=== PATIENT | male | born 1970 | race Caucasian/White ===

== ENCOUNTER 2017-05-10 07:49 | Emergency (ER) | payer BC, OTHER ==
[2017-05-10] MEDS ORDERED: diphenhydrAMINE 50 MG/ML 1 ML VIAL IVP STA (08:36)
[2017-05-10] MEDS ORDERED: SODIUM CHLORIDE 0.9% 1,000 ML IV STA (08:36)
[2017-05-10] MEDS ORDERED: METOCLOPRAMIDE 5 MG/ML 2 ML VIAL IVP STA (08:36)
--- NOTE | 2017-05-10 08:59 | ED ---
General Adult HPI - General Chief complaint: Headache Stated complaint: headache/congestion/left face droop Time Seen by Provider: 05/10/17 08:17 Source: patient, RN notes reviewed Mode of arrival: wheelchair Limitations: no limitations - History of Present Illness Initial comments: Patient for 47-year-old male who presents emergency room today with a chief complaint of left-sided headache over the last 3 weeks. He does but is been followed the family doctor's is currently on second round of antibiotics for sinus infection along with steroids. He states it has not been much improvement over the last day. He states he was feeling better over the weekend. He states his symptoms started once again. Patient does admit that he 's had some pressure rebleeding over the left side. He feels like there is some swelling around his left eye with his eyelid drooping. He states he has seen the family doctor about this. States he feels pressure to the left ear. He states the headache is a sharp type headache that comes and goes located on the side. He denies any other complaints or symptoms. He does not that he takes [place] along with ibuprofen for chronic back pain with Flexeril. He states he's been on amoxicillin now followed by cefuroxime and currently with prednisone for this sinus infection. Patient is he had some nausea vomiting this morning after trying take his or complications. He states he has been diagnosed with hypertension has not currently started any blood pressure medication. Patient denies any recent fever, chills, shortness of breath, chest pain, back pain, abdominal pain, numbness or tingling, dysuria or hematuria, constipation or diarrhea, visual changes, or any other complaints. - Related Data Home Medications Medication Instructions Recorded Confirmed Cefuroxime Axetil [Ceftin] 500 mg PO BID 05/10/17 05/10/17 Cyclobenzaprine [Flexeril] 10 mg PO HS 05/10/17 05/10/17 HYDROcodone/APAP 10-325MG [[place] 1 tab PO Q8H PRN 05/10/17 05/10/17 10-325] Ibuprofen [Motrin] 800 mg PO Q6H PRN 05/10/17 05/10/17 predniSONE See Taper PO DAILY 05/10/17 05/10/17 Previous Rx's Medication Instructions Recorded amLODIPine [Norvasc] 5 mg PO DAILY #15 tab 05/10/17 Allergies Allergy/AdvReac Type Severity Reaction Status Date / Time No Known Allergies Allergy Verified 05/10/17 08:07 Review of Systems ROS Statement: Those systems with pertinent positive or pertinent negative responses have been documented in the HPI. ROS Other: All systems not noted in ROS Statement are negative. Past Medical History Additional Past Medical History / Comment(s): chronic back pain History of Any Multi-Drug Resistant Organisms: None Reported Past Surgical History: Back Surgery Past Psychological History: No Psychological Hx Reported Smoking Status: Current some day smoker Past Alcohol Use History: Occasional Past Drug Use History: None Reported General Exam - General Exam Comments Initial Comments: General: The patient is awake and alert, in no distress, and does not appear acutely ill. Eye: Pupils are equal, round and reactive to light, extra-ocular movements are intact. No nystagmus. There is normal conjunctiva bilaterally. No signs of icterus. Ears, nose, mouth and throat: There are moist mucous membranes and no oral lesions. Patient is tender to palpation over the frontal and left maxillary sinuses. TMs clear bilaterally. Neck: The neck is supple, there is no tenderness or JVD. No meningismal signs. Cardiovascular: There is a regular rate and rhythm. No murmur, rub or gallop is appreciated. Respiratory: Lungs are clear to auscultation, respirations are non-labored, breath sounds are equal. No wheezes, stridor, rales, or rhonchi. Gastrointestinal: Soft, non-distended, non-tender abdomen without masses or organomegaly noted. There is no rebound or guarding present. No CVA tenderness. Bowel sounds are unremarkable. Musculoskeletal: Normal ROM, no tenderness. Strength 5/5. Sensation intact. Pulses equal bilaterally 2+. Neurological: A&O x 3. CN II-XII intact, There are no obvious motor or sensory deficits. Coordination appears grossly intact. Speech is normal. Skin: Skin is warm and dry and no rashes or lesions are noted. Psychiatric: Cooperative, appropriate mood & affect, normal judgment. Limitations: no limitations Course Vital Signs 05/10/17 05/10/17 05/10/17 07:56 09:46 10:09 Temperature 98.1 F Pulse Rate 78 76 Respiratory 20 18 Rate Blood Pressure 191/100 187/114 193/107 O2 Sat by Pulse 100 100 Oximetry 05/10/17 10:56 Temperature 97.9 F Pulse Rate 77 Respiratory 16 Rate Blood Pressure 179/102 O2 Sat by Pulse 100 Oximetry Medical Decision Making - Medical Decision Making Patient's labs been reviewed does show 13,000 white count. Patient has been on steroids. Patient does admit that his pain is improved here in the emergency room after medications given. Patient's CT of his head shows no acute abnormalities. CT of the cervical spine shows no bony abnormalities but does show a left-sided thyroid nodule. Patient updated of the results. Case is discussed with attending physician Dr. Doshi. At this time patient blood pressure controlled. Advised follow-up with family doctor over the next 2 days. Also given neurology to follow-up with for further evaluation. Patient will be started on blood pressure medication. Advised return if symptoms increase worsen. Patient and family member at bedside stating in agreement. - Lab Data Result diagrams: 05/10/17 09:08 05/10/17 09:08 Lab Results 05/10/17 05/10/17 Range/Units 09:08 09:08 WBC 13.4 H (3.8-10.6) k/uL RBC 4.93 (4.30-5.90) m/uL Hgb 14.9 (13.0-17.5) gm/dL Hct 43.3 (39.0-53.0) % MCV 87.8 (80.0-100.0) fL MCH 30.2 (25.0-35.0) pg MCHC 34.4 (31.0-37.0) g/dL RDW 14.1 (11.5-15.5) % Plt Count 350 (150-450) k/uL Neutrophils % 60 % Lymphocytes % 30 % Monocytes % 6 % Eosinophils % 1 % Basophils % 1 % Neutrophils # 8.1 H (1.3-7.7) k/uL Lymphocytes # 4.1 (1.0-4.8) k/uL Monocytes # 0.7 (0-1.0) k/uL Eosinophils # 0.2 (0-0.7) k/uL Basophils # 0.1 (0-0.2) k/uL Sodium 139 (137-145) mmol/L Potassium 4.1 (3.5-5.1) mmol/L Chloride 102 (98-107) mmol/L Carbon Dioxide 27 (22-30) mmol/L Anion Gap 10 mmol/L BUN 21 H (9-20) mg/dL Creatinine 0.73 (0.66-1.25) mg/dL Est GFR (MDRD) Af Amer >60 (>60 ml/min/1.73 sqM) Est GFR (MDRD) Non-Af >60 (>60 ml/min/1.73 sqM) Glucose 94 (74-99) mg/dL Calcium 9.5 (8.4-10.2) mg/dL Total Bilirubin 0.4 (0.2-1.3) mg/dL AST 25 (17-59) U/L ALT 44 (21-72) U/L Alkaline Phosphatase 62 (38-126) U/L Total Protein 6.7 (6.3-8.2) g/dL Albumin 4.3 (3.5-5.0) g/dL Disposition Clinical Impression: Acute headache Disposition: HOME SELF-CARE Condition: Stable Instructions: Acute Headache (ED) Additional Instructions: Please use medication as discussed. Please follow-up with neurology/family doctor in the next 2 days. Please return to emergency room if the symptoms increase or worsen or for any other concerns. Prescriptions: amLODIPine [Norvasc] 5 mg PO DAILY #15 tab Referrals: Vladimir Dias DO [Primary Care Provider] - 1-2 days Rowena Woody MD [STAFF PHYSICIAN] - 1-2 days Time of Disposition: 11:06
[2017-05-10 09:55] LABS: Basophils # (A) 0.1 k/uL (0-0.2); Basophils % (A) 1 %; CH 31.1; CHCM 35.6; Eosinophils # (A) 0.2 k/uL (0-0.7); Eosinophils % (A) 1 %; HCT 43.3 % (39.0-53.0); HDW 2.38; HGB 14.9 gm/dL (13.0-17.5); Luc % (Auto) 2; Lymphocytes # (A) 4.1 k/uL (1.0-4.8); Lymphocytes % (A) 30 %; MCH 30.2 pg (25.0-35.0); MCHC 34.4 g/dL (31.0-37.0); MCV 87.8 fL (80.0-100.0); Mean Platelet Volume 8.3; Monocytes # (A) 0.7 k/uL (0-1.0); Monocytes % (A) 6 %; Neutrophils # (A) 8.1 k/uL (1.3-7.7); Neutrophils % (A) 60 %; RBC 4.93 m/uL (4.30-5.90); RDW 14.1 % (11.5-15.5); WBC 13.4 k/uL (3.8-10.6); WBC (Perox) 13.75
[2017-05-10] MEDS ORDERED: hydrALAZINE HCL 20 MG/ML 1 ML VIAL IVP STA ×2 (09:58→10:56)
[2017-05-10] MEDS ORDERED: HYDROmorphone 1 MG/ML 1 ML SYRINGE IVP STA (10:13)
[2017-05-10 10:14] LABS: ALT 44 U/L (21-72); AST 25 U/L (17-59); Alkaline Phosphatase 62 U/L (38-126); Anion Gap 10 mmol/L; Blood Urea Nitrogen 21 mg/dL (9-20); Calcium 9.5 mg/dL (8.4-10.2); Carbon Dioxide 27 mmol/L (22-30); Chloride 102 mmol/L (98-107); Glucose 94 mg/dL (74-99); Non-African American GFR(MDRD) >60 (>60 ml/min/1.73 sqM); Potassium 4.1 mmol/L (3.5-5.1); Sodium 139 mmol/L (137-145); Total Bilirubin 0.4 mg/dL (0.2-1.3); Total Protein 6.7 g/dL (6.3-8.2)
--- NOTE | 2017-05-10 10:29 | CT ---
EXAMINATION TYPE: CT brain cspine wo con DATE OF EXAM: 05/10/2017 COMPARISON: NONE HISTORY: pressure lt side of ear/face/neck. lt eye either swollen or drooping x 3wks CT DLP: 1595.30 mGycm Automated exposure control for dose reduction was used. TECHNIQUE: CT scan of the head and cervical spine are performed without contrast. FINDINGS: There is no acute intracranial hemorrhage, mass effect, or midline shift identified. The ventricles and sulci are within normal limits in size. The globes are intact and the visualized sin uses are clear. Cervical spine is visualized in its entirety from C1 through upper thoracic levels and demonstrates s atisfactory alignment without evidence of acute fracture or dislocation. Prevertebral soft tissue ap pears within normal limits. The C1-C2 articulation is unremarkable. Posterior spondylosis and degen erative disc disease C5-C6. Chronic appearing deformity of the right first rib suggests previous trauma or congenital abnormality . Uncovertebral joint noted. Mild left-sided foraminal encroachment. There is a 3.2 cm partially calcified large right thyroid nodule. Mild mass effect upon the trachea n oted. IMPRESSION: 1. There is no acute fracture or dislocation evident in the cervical spine. 2. No acute intracranial hemorrhage, mass effect, or midline shift is seen. If there is concern for a cute ischemia correlate with MRI. 3. Large 3.2 cm right thyroid nodule. 4. Given symptoms are persistent recommend follow-up MRI of brain/MRA [place] [place] [facility] [place].
[2017-05-10 10:57] VITALS: BP 179/102; PULSE 77; RESP 16; TEMP 97.9
[2017-05-10] MEDS ORDERED: LABETALOL 5 MG/ML VIAL MDV IVP STA (11:26)
== END 2017-05-10 12:30 | disposition home or self-care (01) ==
LOC: EC 07:49
DX: R51 Headache (principal); E04.1 Nontoxic single thyroid nodule; G89.29 Other chronic pain; M54.9 Dorsalgia, unspecified; J32.0 Chronic maxillary sinusitis; J32.1 Chronic frontal sinusitis; R11.2 Nausea with vomiting, unspecified; F17.200 Nicotine dependence, unspecified, uncomplicated; Z79.52 Long term (current) use of systemic steroids; Z79.899 Other long term (current) drug therapy
CPT/HCPCS: 96375 ×4; 96376 ×2; 96361 ×2; 96374 ×2; 99284 ×2; 36415; 80053; 85025; 72125; 70450; J0360; J1200; J2765; J1170

== ENCOUNTER 2017-05-10 19:14 | Inpatient (IN) | payer BC ==
--- NOTE | 2017-05-10 20:32 | ED ---
General Adult HPI - General Source: patient, RN notes reviewed Mode of arrival: ambulatory Limitations: no limitations <Preston Doshi - Last Filed: 05/10/17 21:16> <Rupert Pantoja - Last Filed: 05/11/17 00:01> - General Chief complaint: Headache Stated complaint: Revisit-Head/Shoulder Pain Time Seen by Provider: 05/10/17 19:40 - History of Present Illness Initial comments: This is a 47-year-old male who presents emergency Department with a three-week history of headache and trapezius muscle pain. Patient was seen by her primary medical care doctor has been treated with antibiotics for possible sinus infection. Patient states has not helped at all. Patient states the pain on Tuesday it completely resolve however she is back today with a vengeance. Patient states he was in the emergency department earlier CAT scans were done and lab work was done and his pain was improved slightly went home. Patient states that she's got home his pain is gotten worse and it was earlier continues to be his trapezius muscle behind his eye and in his ear. Patient states she is also nauseated and has been vomiting constantly. Patient states his blood pressures been elevated. (Preston Doshi) - Related Data Home Medications Medication Instructions Recorded Confirmed Cefuroxime Axetil [Ceftin] 500 mg PO BID 05/10/17 05/10/17 Cyclobenzaprine [Flexeril] 10 mg PO HS 05/10/17 05/10/17 HYDROcodone/APAP 10-325MG [[place] 1 tab PO Q8H PRN 05/10/17 05/10/17 10-325] Ibuprofen [Motrin] 800 mg PO Q6H PRN 05/10/17 05/10/17 predniSONE See Taper PO DAILY 05/10/17 05/10/17 Previous Rx's Medication Instructions Recorded amLODIPine [Norvasc] 5 mg PO DAILY #15 tab 05/10/17 Allergies Allergy/AdvReac Type Severity Reaction Status Date / Time No Known Allergies Allergy Verified 05/10/17 19:54 Review of Systems ROS Other: All systems not noted in ROS Statement are negative. <Preston Doshi - Last Filed: 05/10/17 21:16> ROS Other: All systems not noted in ROS Statement are negative. <Rupert Pantoja - Last Filed: 05/11/17 00:01> ROS Statement: Those systems with pertinent positive or pertinent negative responses have been documented in the HPI. Past Medical History Additional Past Medical History / Comment(s): chronic back pain History of Any Multi-Drug Resistant Organisms: None Reported Past Surgical History: Back Surgery Past Psychological History: No Psychological Hx Reported Smoking Status: Current some day smoker Past Alcohol Use History: Occasional Past Drug Use History: None Reported <Preston Doshi - Last Filed: 05/10/17 21:16> General Exam Limitations: no limitations <Preston Doshi - Last Filed: 05/10/17 21:16> <Rupert Pantoja - Last Filed: 05/11/17 00:01> - General Exam Comments Initial Comments: GENERAL: Patient is well-developed and well-nourished. Patient is nontoxic and well- hydrated and is in moderate distress. ENT: Neck is soft and supple. No significant lymphadenopathy is noted. Oropharynx is clear. Moist mucous membranes. Neck has full range of motion without eliciting any pain. Patient has tenderness in the left temporal region of his scalp on palpation EYES: Left eye is very injected. Extraocular movements were intact and pupils were equal round and reactive to light. Eyelids were unremarkable. PULMONARY: Unlabored respirations. Good breath sounds bilaterally. No audible rales rhonchi or wheezing was noted. CARDIOVASCULAR: There is a regular rate and rhythm without any murmurs gallops or rubs. ABDOMEN: Soft and nontender with normal bowel sounds. No palpable organomegaly was noted. There is no palpable pulsatile mass. SKIN: Skin is clear with no lesions or rashes and otherwise unremarkable. NEUROLOGIC: Patient is alert and oriented x3. Cranial nerves II through XII are grossly intact. Motor and sensory are also intact. Normal speech, volume and content. Symmetrical smile. MUSCULOSKELETAL: Normal extremities with adequate strength and full range of motion. Patient has tenderness over left trapezius muscle on palpation. LYMPHATICS: No significant lymphadenopathy is noted PSYCHIATRIC: Normal psychiatric evaluation. Normal interpersonal interactions appears functionally intact in deals appropriately with others. No signs of depression. No signs of anxiety. (Preston Doshi) Medical Decision Making - Lab Data Result diagrams: 05/10/17 21:00 <Preston Doshi - Last Filed: 05/10/17 21:16> - Lab Data Result diagrams: 05/10/17 21:00 05/10/17 21:00 <Rupert Pantoja - Last Filed: 05/11/17 00:01> - Medical Decision Making EKG shows normal sinus rhythm at 90 bpm. It was 150 QRS is 94 QT interval 392 QTC is 479. Patient's EKG shows no ST segment elevation or depression or T wave normalities are noted. Dr. Horn will be taking over the care of this patient at 9 PM (Preston Doshi) This patient was signed out to me pending his study results, with the understanding that he was to be admitted for intractable headache, to have neurology consultation. The studies have returned and I reviewed them with the patient. On reevaluation, he states that the headache is for the most part resolved and he was actually able to sleep briefly. The patient will be admitted to have neurology consultation. (Rupert Pantoja) - Lab Data Lab Results 05/10/17 05/10/17 05/10/17 Range/Units 21:00 21:00 21:00 WBC 15.4 H (3.8-10.6) k/uL RBC 5.41 (4.30-5.90) m/uL Hgb 16.1 (13.0-17.5) gm/dL Hct 46.8 (39.0-53.0) % MCV 86.4 (80.0-100.0) fL MCH 29.8 (25.0-35.0) pg MCHC 34.5 (31.0-37.0) g/dL RDW 14.2 (11.5-15.5) % Plt Count 400 (150-450) k/uL Neutrophils % 73 % Lymphocytes % 20 % Monocytes % 5 % Eosinophils % 1 % Basophils % 0 % Neutrophils # 11.2 H (1.3-7.7) k/uL Lymphocytes # 3.0 (1.0-4.8) k/uL Monocytes # 0.8 (0-1.0) k/uL Eosinophils # 0.1 (0-0.7) k/uL Basophils # 0.1 (0-0.2) k/uL ESR 2 (0-15) mm/hr Sodium 140 (137-145) mmol/L Potassium 3.8 (3.5-5.1) mmol/L Chloride 105 (98-107) mmol/L Carbon Dioxide 22 (22-30) mmol/L Anion Gap 13 mmol/L BUN 16 (9-20) mg/dL Creatinine 0.70 (0.66-1.25) mg/dL Est GFR (MDRD) Af Amer >60 (>60 ml/min/1.73 sqM) Est GFR (MDRD) Non-Af >60 (>60 ml/min/1.73 sqM) Glucose 102 H (74-99) mg/dL Calcium 10.4 H (8.4-10.2) mg/dL Total Bilirubin 0.8 (0.2-1.3) mg/dL AST 18 (17-59) U/L ALT 50 (21-72) U/L Alkaline Phosphatase 88 (38-126) U/L Total Creatine Kinase 63 (55-170) U/L CK-MB (CK-2) 0.9 (0.0-2.4) ng/mL CK-MB (CK-2) Rel Index 1.4 Troponin I <0.012 (0.000-0.034) ng/mL C-Reactive Protein <5.0 (<10.0) mg/L Total Protein 7.6 (6.3-8.2) g/dL Albumin 5.0 (3.5-5.0) g/dL TSH 3.070 (0.465-4.680) mIU/L Free T4 1.64 (0.78-2.19) ng/dL Disposition <Preston Doshi - Last Filed: 05/10/17 21:16> <Rupert Pantoja - Last Filed: 05/11/17 00:01> Clinical Impression: Acute headache, Hypertension Disposition: ADMITTED IP TO THIS HOSP Condition: Fair Referrals: Vladimir Dias DO [Primary Care Provider] - 1-2 days
[2017-05-10] MEDS ORDERED: ONDANSETRON 4 MG/2 ML VIAL IVP STA (20:33)
[2017-05-10] MEDS ORDERED: DIAZEPAM 5 MG/ML 2 ML SYRINGE IVP STA (20:33)
[2017-05-10] MEDS ORDERED: SODIUM CHLORIDE 0.9% 1,000 ML IV ONE (20:34)
[2017-05-10] MEDS ORDERED: DIAZEPAM 5 MG TAB PO STA (20:40)
[2017-05-10] MEDS ORDERED: HYDROmorphone 1 MG/ML 1 ML SYRINGE IVP STA (21:00)
[2017-05-10 21:09] LABS: Basophils # (A) 0.1 k/uL (0-0.2); Basophils % (A) 0 %; CH 31.2; CHCM 36.2; Eosinophils # (A) 0.1 k/uL (0-0.7); Eosinophils % (A) 1 %; HCT 46.8 % (39.0-53.0); HDW 2.39; HGB 16.1 gm/dL (13.0-17.5); Luc % (Auto) 1; Lymphocytes % (A) 20 %; MCH 29.8 pg (25.0-35.0); MCHC 34.5 g/dL (31.0-37.0); MCV 86.4 fL (80.0-100.0); Mean Platelet Volume 8.1; Monocytes # (A) 0.8 k/uL (0-1.0); Monocytes % (A) 5 %; Neutrophils # (A) 11.2 k/uL (1.3-7.7); Neutrophils % (A) 73 %; RBC 5.41 m/uL (4.30-5.90); RDW 14.2 % (11.5-15.5); WBC 15.4 k/uL (3.8-10.6); WBC (Perox) 15.08
[2017-05-10 21:24] LABS: ALT 50 U/L (21-72); AST 18 U/L (17-59); Alkaline Phosphatase 88 U/L (38-126); Anion Gap 13 mmol/L; Blood Urea Nitrogen 16 mg/dL (9-20); C Reactive Protein <5.0 mg/L (<10.0); Calcium 10.4 mg/dL (8.4-10.2); Carbon Dioxide 22 mmol/L (22-30); Chloride 105 mmol/L (98-107); Glucose 102 mg/dL (74-99); Non-African American GFR(MDRD) >60 (>60 ml/min/1.73 sqM); Potassium 3.8 mmol/L (3.5-5.1); Sodium 140 mmol/L (137-145); Total Bilirubin 0.8 mg/dL (0.2-1.3); Total Protein 7.6 g/dL (6.3-8.2)
[2017-05-10 21:32] LABS: Creatine Kinase 63 U/L (55-170)
[2017-05-10 21:43] LABS: Creatine Kinase MB 0.9 ng/mL (0.0-2.4); Troponin I <0.012 ng/mL (0.000-0.034)
[2017-05-10 22:53] LABS: Erythrocyte Sedimentation Rate 2 mm/hr (0-15)
[2017-05-10] MEDS ORDERED: LABETALOL 5 MG/ML VIAL MDV IVP STA (23:52)
[2017-05-10] MEDS ORDERED: NALOXONE 0.4 MG/ML 1 ML VIAL IV PRN (23:53)
[2017-05-10] MEDS ORDERED: ACETAMINOPHEN TAB 325 MG TAB PO PRN (23:53)
[2017-05-10] MEDS ORDERED: cloNIDine HCL 0.2 MG TAB PO PRN (23:57)
[2017-05-11] MEDS: SODIUM CHLORIDE 0.9% 1,000 ML IV SCH (00:02)
[2017-05-11 01:24] VITALS: BMI 29.2
[2017-05-11] MEDS: HYDROmorphone 1 MG/ML 1 ML SYRINGE IVP PRN ×2 (01:44→05:33)
[2017-05-11] MEDS: FAMOTIDINE 20 MG TAB PO SCH ×2 (07:50→20:47)
[2017-05-11] MEDS ORDERED: traMADol 50 MG TAB PO PRN (09:09)
[2017-05-11] MEDS ORDERED: amLODIPine 5 MG TAB PO SCH (09:15)
[2017-05-11] MEDS ORDERED: BUTA/APAP/CAF/COD 50-325-40-30 CAP PO PRN (12:56)
--- NOTE | 2017-05-11 13:03 | P.HPIM ---
History of Present Illness This is a 47-year-old male who presents emergency Department with a three-week history of headache Patient was seen by her primary medical care doctor has been treated with antibiotics for possible sinus infection. Patient states has not helped at all. Patient states the pain on Tuesday it completely resolve however she is back yesterday and patient's headache is bit tolerable now. Patient states he was in the emergency department earlier CAT scans of had an echo done did not show any significant abnormality . Patient states she is also nauseated and has been vomiting constantly. Patient states his blood pressures been elevated. Patient also has left-sided orbital muscle weakness. Patient's pupils are constricted when I examined because of which I was unable to diagnose anisocoria which was documented by the nursing staff. His blood pressure was elevated secondary to headache. Patient also uses cimetidine at home I do not believe any additional medications are required for hypertension. Neurology will valid the patient patient may have cluster headache and further management of that as per neurology and patient will be discharged after neurological evaluation and will give Fioricet now and see if it will give him any symptomatic relief and Fioricet upon discharge. Review of Systems REVIEW OF SYSTEMS: CONSTITUTIONAL: No fever, no malaise, no fatigue. HEENT: No recent visual problems or hearing problems. Denied any sore throat. CARDIOVASCULAR: No chest pain, orthopnea, PND, no palpitations, no syncope. PULMONARY: No shortness of breath, no cough, no hemoptysis. GASTROINTESTINAL: No diarrhea, no nausea, no vomiting, no abdominal pain. Normoactive bowel sounds. NEUROLOGICAL: , no weakness, no numbness. HEMATOLOGICAL: Denies any bleeding or petechiae. GENITOURINARY: Denies any burning micturition, frequency, or urgency. MUSCULOSKELETAL/RHEUMATOLOGICAL: Denies any joint pain, swelling, or any muscle pain. ENDOCRINE: Denies any polyuria or polydipsia. The rest of the 14-point review of systems is negative. Past Medical History Additional Past Medical History / Comment(s): chronic back pain,borderline high blood pressure History of Any Multi-Drug Resistant Organisms: None Reported Past Surgical History: Back Surgery Past Anesthesia/Blood Transfusion Reactions: No Reported Reaction Past Psychological History: No Psychological Hx Reported Smoking Status: Former smoker Past Alcohol Use History: Occasional Past Drug Use History: None Reported - Past Family History Father Family Medical History: Cancer Medications and Allergies Home Medications Medication Instructions Recorded Confirmed Type Cefuroxime Axetil [Ceftin] 500 mg PO BID 05/10/17 05/11/17 History Cyclobenzaprine [Flexeril] 10 mg PO HS 05/10/17 05/11/17 History HYDROcodone/APAP 10-325MG [[place] 1 tab PO Q8H PRN 05/10/17 05/11/17 History 10-325] Ibuprofen [Motrin] 800 mg PO Q6H PRN 05/10/17 05/11/17 History amLODIPine [Norvasc] 5 mg PO DAILY #15 tab 05/10/17 05/11/17 Rx predniSONE See Taper PO DAILY 05/10/17 05/11/17 History Atorvastatin [Lipitor] 40 mg PO HS 05/11/17 05/11/17 History Butalb/APAP/Caff 50-325-40Mg 1 tab PO Q4H PRN #30 tablet 05/11/17 Rx [Fioricet 50-325-40] Allergies Allergy/AdvReac Type Severity Reaction Status Date / Time No Known Allergies Allergy Verified 05/11/17 01:08 Physical Exam Vitals: Vital Signs Temp Pulse Pulse Pulse Resp BP BP 05/11/17 11:17 83 18 159/97 05/11/17 10:39 82 177/108 05/11/17 08:49 86 20 163/103 05/11/17 07:55 16 05/11/17 07:00 98.3 F 80 18 185/85 05/11/17 01:45 96.9 F L 74 16 158/95 05/11/17 00:33 70 16 147/78 05/11/17 00:16 70 16 160/89 05/10/17 22:06 88 16 176/106 05/10/17 19:51 88 18 169/91 05/10/17 19:38 98.8 F 85 22 173/91 Pulse Ox 05/11/17 11:17 99 05/11/17 10:39 05/11/17 08:49 97 05/11/17 07:55 05/11/17 07:00 98 05/11/17 01:45 95 05/11/17 00:33 100 05/11/17 00:16 100 05/10/17 22:06 100 05/10/17 19:51 100 05/10/17 19:38 99 Intake and Output 05/10/17 05/11/17 05/11/17 22:59 06:59 14:59 Intake Total 400 Balance 400 Intake: Oral 400 Other: Voiding Method Toilet Toilet # Voids 1 Weight 108.862 kg 108.862 kg PHYSICAL EXAMINATION: GENERAL: The patient is alert and oriented x3, not in any acute distress. Well developed, well nourished. HEENT: Pupils are constricted bilaterally. EOMI. No scleral icterus. No conjunctival pallor. Normocephalic, atraumatic. No pharyngeal erythema. No thyromegaly. CARDIOVASCULAR: S1 and S2 present. No murmurs, rubs, or gallops. PULMONARY: Chest is clear to auscultation, no wheezing or crackles. ABDOMEN: Soft, nontender, nondistended, normoactive bowel sounds. No palpable organomegaly. MUSCULOSKELETAL: No joint swelling or deformity. EXTREMITIES: No cyanosis, clubbing, or pedal edema. NEUROLOGICAL: Gross neurological examination did not reveal any focal deficits except for operative muscle weakness patient's internal ocular muscles are intact SKIN: No rashes. Results CBC & Chem 7: 05/10/17 21:00 05/10/17 21:00 Labs: Abnormal Lab Results - Last 24 Hours (Table) 05/10/17 05/10/17 Range/Units 21:00 21:00 WBC 15.4 H (3.8-10.6) k/uL Neutrophils # 11.2 H (1.3-7.7) k/uL Glucose 102 H (74-99) mg/dL Calcium 10.4 H (8.4-10.2) mg/dL Thrombosis Risk Factor Assmnt - Choose All That Apply Any of the Below Risk Factors Present?: Yes Each Factor Represents 1 point: Age 41-60 years, Obesity (BMI >25) Other Risk Factors: No Other congenital or acquired thrombophilia - If yes, enter type in comment: No Thrombosis Risk Factor Assessment Total Risk Factor Score: 2 Thrombosis Risk Factor Assessment Level: Low Risk Assessment and Plan Plan: #1 headache patient appears to have primary headache can be cluster headache. Management as mentioned above #2 elevated blood pressures patient is hypotensive his present elevated blood pressures are secondary to headache which need to be treated and some chronic management for headache as mentioned above ruled out intracranial bleed with a CAT scan of the head. #3 leukocytosis: Secondary to the systemic steroids he was receiving at home for headache. #4 patient was treated for sinusitis I do not believe patient has sinusitis or infection at this point of time antibiotics can be discontinued. He didn't take 1 complete course of antibiotics.
--- NOTE | 2017-05-11 13:04 | P.DS ---
Providers Date of admission: 05/10/17 23:54 Attending physician: Cristal Escamilla Consults: 05/10/17 23:55 Consult Physician Routine Consulting Provider: Rowena Woody Consult Reason/Comments: Headache Do you want consulting provider notified?: Yes Primary care physician: Vladimir Dias [place] [facility] Course: Please refer to [facility] for further details Patient Condition at Discharge: Fair Plan - Discharge Summary New Discharge Prescriptions: New [place]/APAP/Caff 50-325-40Mg [Fioricet 50-325-40] 1 tab PO Q4H PRN #30 tablet PRN Reason: Headache No Action predniSONE See Taper PO DAILY Ibuprofen [Motrin] 800 mg PO Q6H PRN PRN Reason: Pain HYDROcodone/APAP 10-325MG [[place] 10-325] 1 tab PO Q8H PRN PRN Reason: Pain Cyclobenzaprine [Flexeril] 10 mg PO HS Cefuroxime Axetil [Ceftin] 500 mg PO BID amLODIPine [Norvasc] 5 mg PO DAILY #15 tab Atorvastatin [Lipitor] 40 mg PO HS Discharge Medication List Cefuroxime Axetil [Ceftin] 500 mg PO BID 05/10/17 [History] Cyclobenzaprine [Flexeril] 10 mg PO HS 05/10/17 [History] HYDROcodone/APAP 10-325MG [[place] 10-325] 1 tab PO Q8H PRN 05/10/17 [History] Ibuprofen [Motrin] 800 mg PO Q6H PRN 05/10/17 [History] amLODIPine [Norvasc] 5 mg PO DAILY #15 tab 05/10/17 [Rx] predniSONE See Taper PO DAILY 05/10/17 [History] Atorvastatin [Lipitor] 40 mg PO HS 05/11/17 [History] Butalb/APAP/Caff 50-325-40Mg [Fioricet 50-325-40] 1 tab PO Q4H PRN #30 tablet [Rx] Follow up Appointment(s)/Referral(s): Vladimir Dias DO [Primary Care Provider] - 3 Days Discharge Disposition: HOME SELF-CARE
--- NOTE | 2017-05-11 19:20 | P.CNNES ---
History of Present Illness Consult date: 05/11/17 Reason for Consult: Patient being evaluated for headaches. History of Present Illness: This patient is a 47-year-old right-handed white male who apparently 3 weeks ago experienced severe left frontal headache pain. 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 He states he normally does occasionally get a headache now and then but about 3 weeks ago he developed a severe left-sided frontal headache pain. He went to see his primary care physician in [place] and was seen by the physician property management assistant. She was concerned about possibility of sinus disease producing headaches and he was sent for plain x-rays of the sinuses which was negative. He was placed on amoxicillin for one week. The patient states he did not feel any improvement after week of the antibiotic. His headache pain at that time was 3/10 in intensity. About 1 week later his noted that he had a droopy eyelid on the left side. He did not notice this himself. He once again had recurrent episode of left-sided frontal headache pain. The pain was more severe than a week previously and he rated the headache pain as 5/10 in intensity. He went back to see the nurse practitioner and physician property management assistant who recommended that he should take a course of prednisone plus an antibiotic for one week. He did this and apparently still did not feel much relief. This past Tuesday he was back to work and had a recurrence of severe left-sided frontal orbital pain. He described the pain this time is being very severe nature. He describes it as a throbbing jabbing pain radiating to his left side. At 2 AM on Tuesday of this past week he awoke due to the severity of the headache pain and was brought to tears. Apparently his also heard him and decided to bring him to the emergency room yesterday morning at 7 AM. The patient was seen in the ER and did undergo a computed tomography scan of the brain and cervical spine. CAT scan of the brain revealed no acute abnormalities. No evidence of acute stroke or hemorrhage. There was a large 3.2 cm nodule detected on the right thyroid. Computed tomography scan of the cervical spine failed to reveal any acute fracture or dislocation. Patient was essentially admitted to the hospital. He was found to have evidence of hypertensive urgency. Apparently he was started only on Norvasc 5 mg daily. He continues to have very elevated blood pressure readings today. The patient states he has been feeling better this afternoon since 2 PM. Unfortunately his blood pressure remains very elevated and is consistent with hypertensive urgency. A repeat blood pressure reading this evening is 187/119. We are recommending the patient should be evaluated for a adjustment in his antihypertensive medications due to the very elevated blood pressure readings. This has been consistently high all afternoon. The patient continues to notice ptosis involving his left eyelid. He has no previous history of ptosis. The patient states that the pain has been much better since this afternoon but at its maximum it was a very severe excruciating pain causing him to go into a position due to the severity of the pain symptoms. He described the pain as 12/10 in intensity. As noted on Tuesday morning he was crying due to the severity of the pain. His clinical history does suggest possibility of cluster headache. In the emergency room earlier today he was given nasal oxygen for several hours. This did seem to relieve much of his headache pain. This finding also favors a diagnosis of cluster headache. We have recommended the patient should undergo an MRI/MRA of the brain for further evaluation due to the finding of ptosis involving the left eyelid. We would like to rule out any possibility of a cerebral aneurysm producing third nerve palsy. Patient denies any family history of cerebral aneurysm. There is family history of stroke. The patient has been taking several pain medications for treatment of chronic low back pain. He underwent back surgery about 9 years ago and has been using Narco, Flexeril, and Motrin as needed. We have recommended the patient to be started on prophylactic therapy for cluster headaches. We suggest he use Calan SR 180 mg daily. We will give him a dose tonight. We are recommending that the neuroimaging studies be done tomorrow morning. Depending on these results further recommendations will be given. We have recommended the patient should be monitored overnight for his blood pressure readings. He does have evidence of hypertensive urgency at this time. If he is not well controlled would consider cardiology consultation. His overall prognosis at this time remains very guarded. Case was discussed at length with the patient and his at bedside. All their questions were answered. They're aware of our current treatment plan and recommendations. They're in full agreement with our current workup. His overall prognosis at this time remains very guarded. Review of Systems Constitutional: Denies chills, Denies fever Eyes: denies blurred vision, denies pain Ears, nose, mouth and throat: Reports sinus pressure, Denies headache, Denies sore throat Cardiovascular: Denies chest pain, Denies shortness of breath Respiratory: Denies cough Gastrointestinal: Denies abdominal pain, Denies diarrhea, Denies nausea, Denies vomiting Musculoskeletal: Denies myalgias Integumentary: Denies pruritus, Denies rash Neurological: Reports confusion, Reports headaches, Reports memory loss, Reports migraines, Denies numbness, Denies weakness Psychiatric: Denies anxiety, Denies depression Endocrine: Denies fatigue, Denies weight change Past Medical History Additional Past Medical History / Comment(s): chronic back pain,borderline high blood pressure History of Any Multi-Drug Resistant Organisms: None Reported Past Surgical History: Back Surgery Past Anesthesia/Blood Transfusion Reactions: No Reported Reaction Past Psychological History: No Psychological Hx Reported Smoking Status: Former smoker Past Alcohol Use History: Occasional Past Drug Use History: None Reported - Past Family History Father Family Medical History: Cancer Medications and Allergies Home Medications Medication Instructions Recorded Confirmed Type Cefuroxime Axetil [Ceftin] 500 mg PO BID 05/10/17 05/11/17 History Cyclobenzaprine [Flexeril] 10 mg PO HS 05/10/17 05/11/17 History HYDROcodone/APAP 10-325MG [[place] 1 tab PO Q8H PRN 05/10/17 05/11/17 History 10-325] Ibuprofen [Motrin] 800 mg PO Q6H PRN 05/10/17 05/11/17 History amLODIPine [Norvasc] 5 mg PO DAILY #15 tab 05/10/17 05/11/17 Rx predniSONE See Taper PO DAILY 05/10/17 05/11/17 History Atorvastatin [Lipitor] 40 mg PO HS 05/11/17 05/11/17 History Butalb/APAP/Caff 50-325-40Mg 1 tab PO Q4H PRN #30 tablet 05/11/17 Rx [Fioricet 50-325-40] Allergies Allergy/AdvReac Type Severity Reaction Status Date / Time No Known Allergies Allergy Verified 05/11/17 01:08 Physical Examination - Vital Signs Vital Signs: Vital Signs Temp Pulse Pulse Pulse Resp BP BP 05/11/17 14:49 90 05/11/17 11:17 83 18 159/97 05/11/17 10:39 82 177/108 09/13/17 08:49 86 20 163/103 05/11/17 07:55 16 05/11/17 07:00 98.3 F 80 18 185/85 05/11/17 01:45 96.9 F L 74 16 158/95 05/11/17 00:33 70 16 147/78 05/11/17 00:16 70 16 160/89 05/10/17 22:06 88 16 176/106 05/10/17 19:51 88 18 169/91 05/10/17 19:38 98.8 F 85 22 173/91 BP Pulse Ox 05/11/17 14:49 186/114 05/11/17 11:17 99 05/11/17 10:39 05/11/17 08:49 97 05/11/17 07:55 05/11/17 07:00 98 05/11/17 01:45 95 05/11/17 00:33 100 05/11/17 00:16 100 05/10/17 22:06 100 05/10/17 19:51 100 05/10/17 19:38 99 Intake and Output 05/11/17 05/11/17 05/11/17 06:59 14:59 22:59 Intake Total 400 Balance 400 Intake: Oral 400 Other: Voiding Method Toilet Toilet Toilet # Voids 1 2 Weight 108.862 kg - Constitutional General appearance: average body habitus, cooperative - EENT EENT: PERRL, mucous membranes moist - Respiratory Respiratory: lungs clear, normal breath sounds - Cardiovascular Cardiovascular: regular rate, normal S1, normal S2 Extremities: no peripheral edema bilaterally - Gastrointestinal Gastrointestinal: normoactive bowel sounds - Integumentary Integumentary: normal - Neurologic Cranial nerve examination: PERRL, VFF, ptosis (Patient with ptosis of left eyelid.), V1/V2/V3 grossly intact, face symmetric, intact gag reflex, intact corneal reflex, normal palatal elevation Speech examination: intact Sensorimotor examination: intact Detailed motor examination: grossly full strength in all extremities Motor examination - right side: 4/5: biceps, triceps, wrist flexion, wrist extension, harbor police lieutenant, hip flexors, knee extensors, dorsiflexion, toe extension (EHL) , plantarflexion Motor examination - left side: 4/5: biceps, triceps, wrist flexion, wrist extension, [employer] police lieutenant, hip flexors, knee extensors, dorsiflexion, toe extension (EHL) , plantarflexion Detailed sensory examination: intact Reflex and gait examination: intact Reflexes: 1+: ankle, bicep, knee, tricep - Musculoskeletal Musculoskeletal: no pain - Psychiatric Psychiatric: mood/affect appropriate, cooperative Results - Laboratory Findings CBC and BMP: 05/10/17 21:00 05/10/17 21:00 Abnormal Lab Findings: Abnormal Labs 05/10/17 05/10/17 21:00 21:00 WBC 15.4 H Neutrophils # 11.2 H Glucose 102 H Calcium 10.4 H Assessment and Plan (1) Cluster headache syndrome Status: Acute Code(s): G44.009 - CLUSTER HEADACHE SYNDROME, UNSPECIFIED, NOT INTRACTABLE (2) Oculomotor nerve palsy, left eye Status: Acute Code(s): H49.02 - THIRD [OCULOMOTOR] NERVE PALSY, LEFT EYE (3) Hypertensive urgency Status: Acute Code(s): I16.0 - HYPERTENSIVE URGENCY (4) Thyroid nodule Status: Acute Code(s): E04.1 - NONTOXIC SINGLE THYROID NODULE Plan: This patient is a 47-year-old male who was admitted to hospital with severe intractable left-sided headache pain. Patient was brought into the emergency room as he was having increasing symptoms of intractable left frontal headache pain. He was noted to have some ptosis of the left eyelid as well. Apparently the ptosis has been noted for the past 3 weeks. He was treated for sinus headaches and was prescribed amoxicillin. This was not of much help and he had severe excruciating pain causing him severe incapacity. He was brought into the emergency room and was admitted to hospital today. His neurological history and current clinical findings suggest cluster headache as a primary cause of his current symptoms. He was treated in the ER with nasal oxygen 100% and this did seem to help his headache pain symptoms. We are recommending the patient to be started on Calan SR 180 mg daily as a prophylactic treatment for cluster headaches. He does not experience any severe acute pain at this time since early this afternoon. We have recommended that he requires adjustment of his antihypertensive medications as he continues to demonstrate evidence of hypertensive urgency. We are recommending the patient undergo an MRI and MRA of the brain tomorrow morning for further evaluation. Depending on these results further recommendations will be given. His overall prognosis at this time remains very guarded. Case was discussed at length with the patient is at bedside. All their questions were answered. They're aware of our current clinical findings and recommendations. His overall prognosis at this time remains guarded. Time with Patient: Greater than 30
[2017-05-11] MEDS: CYCLOBENZAPRINE 10 MG TAB PO SCH (20:47)
[2017-05-11] MEDS: HYDROcodone/APAP 5-325MG 1 EACH TAB PO PRN (20:48)
[2017-05-11] MEDS: ATORVASTATIN 40 MG TAB PO SCH (20:50)
[2017-05-11] MEDS ORDERED: VERAPAMIL SR 180 MG TABLET.ER PO SCH (21:00)
[2017-05-12] MEDS: SODIUM CHLORIDE 0.9% 1,000 ML IV SCH (00:04)
[2017-05-12 03:59] VITALS: RESP 18
[2017-05-12] MEDS: HYDROcodone/APAP 5-325MG 1 EACH TAB PO PRN ×2 (05:28→11:47)
[2017-05-12] MEDS: FAMOTIDINE 20 MG TAB PO SCH (08:46)
[2017-05-12] MEDS: ATORVASTATIN 40 MG TAB PO SCH (08:46)
[2017-05-12] MEDS: CYCLOBENZAPRINE 10 MG TAB PO SCH (08:46)
[2017-05-12] MEDS ORDERED: ASPIRIN 325 MG TAB PO SCH (09:00)
[2017-05-12] MEDS ORDERED: amLODIPine 10 MG TAB PO SCH (09:00)
[2017-05-12] MEDS ORDERED: LORazepam 2 MG/ML SYRINGE IV STA (10:47)
[2017-05-12] MEDS ORDERED: LORazepam 2 MG/ML SYRINGE IV PRN (10:49)
--- NOTE | 2017-05-12 13:02 | MR ---
EXAMINATION TYPE: MR brain wo con, MR angio head wo con DATE OF EXAM: 05/12/2017 COMPARISON: CT 05/10/2017 HISTORY: 47-year-old male with left sided cluster headaches TECHNIQUE: Multiplanar, multisequence images of the brain and brainstem were acquired without IV con trast. Diffusion weighted imaging is performed. Subsequently, high-resolution 3-D [id number] imag ing of the cheesh[place] of [place]. Rotational 3-D reconstructions generated on a dedicated independent work station. FINDINGS: BRAIN: No evidence for acute infarction, hemorrhage, mass, mass effect, midline shift, herniation, effacemen t of basal cisterns, or extra-axial fluid collection. The ventricles and sulci are age-appropriate. T2/FLAIR weighted sequences show no white matter signal abnormality. Midline structures demonstrate normal morphology. The craniocervical junction is normal. There is some asymmetric low signal within the left internal auditory canal which may be secondary to volume averaging. Mild mucosal thickening ethmoid air cells. Leftward nasal septal deviation. Globes are intact. At the level of the skull base, there is crescentic high signal around the left ICA narrowing the nor mal flow void. MRA HEAD: There is approximately 50% narrowing of the left internal carotid artery involving the visualized cer vical segment and vertical petrous segment. Circumferential intermediate signal is present suggesting a false lumen. The remainder of the anterior posterior circulation is patent. There is a persistent origin of the left posterior cerebral artery with a hypoplastic P1 segmen t of the left COATING MIXER. There is also a hypoplastic A1 segment of the left anterior cerebral artery. No aneurysmal change is seen. COMBINED IMPRESSION: 1. No acute intracranial abnormality seen. 2. HOWEVER, FINDINGS ARE CONCERNING FOR A DISSECTION OF THE VISUALIZED UPPER CERVICAL LEFT ICA EXTEND ING INTO THE VERTICAL PETROUS SEGMENT. There is approximately 50% caliber narrowing as compared to th e contralateral side. Appropriate neurosurgical management recommended. 3. 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 4. Some low signal in the left internal auditory canal could be secondary to volume averaging. When t he patient is able, a contrast-enhanced MRI of the IACs can be performed to exclude any enhancing les ion here. Critical findings called to Cinthya on - at 12:45pm with instructions to immediately notify the or dering clinician.
[2017-05-12 13:15] VITALS: BP 166/103; PULSE 82; TEMP 97.1
[2017-05-12] MEDS ORDERED: LABETALOL 100 MG TAB PO STA (13:22)
--- NOTE | 2017-05-12 14:12 | P.PN ---
Subjective Cedric Zafar is a 47-year-old male who was seen in neurology consultation yesterday for intractable left-sided headache pain. Patient had initially undergone a computed tomography scan of the brain which revealed no acute abnormalities. He was seen yesterday for neurology consultation due to the recurrent left-sided headache pain. His clinical history suggested possibility of cluster headache. He was also noted to have ptosis involving the left eyelid. There was concern for possibility of third nerve involvement and it was recommended that he should undergo a MRI MRA of the brain for further evaluation. Yesterday evening he was also noted to have evidence of hypertensive urgency. He is still having difficulty controlling his blood pressure this morning. His antihypertensive medications have been adjusted by internal medicine. The patient was sent for MRI MRA of the brain this morning. His MRI of the brain came back negative for any acute intracranial abnormality. 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 Given the acute finding it was felt the patient should be immediately transferred to [facility] intensive care unit with neurosurgery and neurology consultation. The patient has remained relatively stable despite the finding of acute left internal carotid artery dissection. He still has some degree of left-sided headache pain. We reviewed the results of the MRI MRA with the patient today in detail. Given the finding of acute dissection we are recommending that he should be transferred to [facility] for higher level of care with neurosurgery and vascular surgery consultations. The patient is in full agreement and we will make arrangements to have this patient airlifted to [facility] today for further treatment. This patient's history and neurological findings were discussed today with the [facility] transfer team and Dr. Quezada is the accepting physician at [facility] today. Full report was given to him today by phone. He has accepted the patient on transfer and when he will be placed into the neurosurgery ICU at [facility] upon his arrival. The patient neurologically remains very stable at this time. We are waiting the air ambulance to arrive today to transport this patient to [facility] as soon as possible. We have discussed the findings of his MRI MRA with him in detail. He is in full agreement for transfer today for ongoing higher level of care at [facility]. We are awaiting a bed assignment for this patient which will be relayed to the nursing staff. We will continue close neuro checks on this patient while he is awaiting transfer. His overall prognosis at this time remains very guarded. Objective - Vital Signs Vital signs: Vital Signs Temp 97.1 F L 05/12/17 13:14 Pulse 82 05/12/17 13:14 Resp 18 05/12/17 13:14 BP 166/103 05/12/17 13:14 Pulse Ox 98 05/12/17 08:46 Intake & Output 05/11/17 05/12/17 05/12/17 18:59 06:59 18:59 Intake Total 600 360 Balance 600 360 Weight 103.9 kg Intake: Oral 600 360 Other: Voiding Method Toilet Toilet Toilet # Voids 2 1 - Exam Physical examination: PHYSICAL EXAMINATION: Patient is resting comfortably in bed. VITAL SIGNS: Blood pressure is [166/103]. Heart rate is [82]. Respiration is [18 ]. Temperature is [97.1]. HEENT: Head is atraumatic, neck is supple, there were no carotid bruits. CHEST: Lungs are clear to auscultation and percussion. CARDIAC: S1, S2 normal rate and rhythm. There is no murmur. ABDOMEN: Soft and nontender. Bowel sounds are present. EXTREMITIES: There is no pedal edema. Peripheral pulses are present. Neurological examination: Patient has a nonfocal neurological examination which is unchanged from yesterday. He continues to demonstrate evidence of left eyelid ptosis. - Labs CBC & Chem 7: 05/10/17 21:00 05/10/17 21:00 Assessment and Plan (1) Cluster headache syndrome Status: Acute Code(s): G44.009 - CLUSTER HEADACHE SYNDROME, UNSPECIFIED, NOT INTRACTABLE (2) Oculomotor nerve palsy, left eye Status: Acute Code(s): H49.02 - THIRD [OCULOMOTOR] NERVE PALSY, LEFT EYE (3) Hypertensive urgency Status: Acute Code(s): I16.0 - HYPERTENSIVE URGENCY (4) Thyroid nodule Status: Acute Code(s): E04.1 - NONTOXIC SINGLE THYROID NODULE Plan: This patient is a 47-year-old male who was seen in neurology consultation yesterday for evaluation of intractable left-sided headache pain. He was symptomatic for over 3 weeks and was brought into the hospital yesterday and admitted. His clinical history suggested possibility of cluster headaches. He did have ptosis on his left eyelid however and for this reason it was recommended the patient undergo an MRI/MRA of the brain. The MRI of the brain was performed today and is negative for any acute changes. MRA was completed today and does reveal evidence of 80 acute dissection involving the upper cervical left ICA extending into the vertical petrous segment. Given this acute finding it was recommended he should be transferred to neurosurgery and vascular surgery Center for further management. We did contact [facility] surgical team and they have accepted the patient in transfer to [facility] to be seen by neurosurgery. We have explained all of these findings in detail today with the patient at bedside. All of his questions were answered. He is aware of her need to transfer him by air ambulance to [facility] as soon as possible this afternoon. His overall condition and prognosis at this time remains stable however very guarded. Case was discussed today with the patient in detail. His neurological examination remains very stable at the time of this transfer. We will continue close neurological follow-up of this patient and will contact the excepting physician tomorrow in regards to his further treatment there at [facility]. His overall prognosis at this time remains very guarded.
--- NOTE | 2017-05-12 14:25 | P.DS ---
Providers Date of admission: 05/12/17 13:33 Attending physician: Cristal Escamilla Consults: 05/10/17 23:55 Consult Physician Routine Consulting Provider: Rowena Woody Consult Reason/Comments: Headache Do you want consulting provider notified?: Yes Primary care physician: [facility] Course: Patient came in with complaints of headache of 2 weeks duration. Patient was initially thought to have cluster headaches was treated with oxygen without any significant improvement and some symptomatic treatment with Fioricet. Patient did have ptosis on the left side without any other focal deficits because of which patient underwent MRA and MRA of the head and neck which showed carotid dissection on the left side extending up to the petrous segment of left internal carotid. Neurology validate the patient and they are recommending transfer to [facility] for neurosurgical evaluation patient blood pressure is high because of which we will give limited along considering his carotid dissection. PHYSICAL EXAMINATION: GENERAL: The patient is alert and oriented x3, not in any acute distress. Well developed, well nourished. HEENT: Pupils are round and equally reacting to light. EOMI. No scleral icterus. No conjunctival pallor. Normocephalic, atraumatic. No pharyngeal erythema. No thyromegaly. CARDIOVASCULAR: S1 and S2 present. No murmurs, rubs, or gallops. PULMONARY: Chest is clear to auscultation, no wheezing or crackles. ABDOMEN: Soft, nontender, nondistended, normoactive bowel sounds. No palpable organomegaly. MUSCULOSKELETAL: No joint swelling or deformity. EXTREMITIES: No cyanosis, clubbing, or pedal edema. NEUROLOGICAL: As mentioned above SKIN: No rashes. #1 headache probably due to carotid dissection #2 essential hypertension #3 leukocytosis: Secondary to the systemic steroids he was receiving at home for headache. #4 patient was treated for sinusitis I do not believe patient has sinusitis or infection at this point of time antibiotics can be discontinued. He didn't take 1 complete course of antibiotics. Patient Condition at Discharge: Fair Plan - Discharge Summary New Discharge Prescriptions: New Butalb/APAP/Caff 50-325-40Mg [Fioricet 50-325-40] 1 tab PO Q4H PRN #30 tablet PRN Reason: Headache No Action predniSONE See Taper PO DAILY Ibuprofen [Motrin] 800 mg PO Q6H PRN PRN Reason: Pain HYDROcodone/APAP 10-325MG [[place] 10-325] 1 tab PO Q8H PRN PRN Reason: Pain Cyclobenzaprine [Flexeril] 10 mg PO HS Cefuroxime Axetil [Ceftin] 500 mg PO BID amLODIPine [Norvasc] 5 mg PO DAILY #15 tab Atorvastatin [Lipitor] 40 mg PO HS Discharge Medication List Cefuroxime Axetil [Ceftin] 500 mg PO BID 05/10/17 [History] Cyclobenzaprine [Flexeril] 10 mg PO HS 05/10/17 [History] HYDROcodone/APAP 10-325MG [[place] 10-325] 1 tab PO Q8H PRN 05/10/17 [History] Ibuprofen [Motrin] 800 mg PO Q6H PRN 05/10/17 [History] amLODIPine [Norvasc] 5 mg PO DAILY #15 tab 05/10/17 [Rx] predniSONE See Taper PO DAILY 05/10/17 [History] Atorvastatin [Lipitor] 40 mg PO HS 05/11/17 [History] Butalb/APAP/Caff 50-325-40Mg [Fioricet 50-325-40] 1 tab PO Q4H PRN #30 tablet [Rx] Follow up Appointment(s)/Referral(s): Vladimir Dias DO [Primary Care Provider] - 3 Days Discharge Disposition: OTHER INSTITUTION NOT DEFINED
--- NOTE | 2017-05-12 20:47 | EEG ---
ELECTROENCEPHALOGRAM REPORT DATE OF EE05/12/2017 REFERRING PHYSICIAN: Cecilio Escamilla M.D. INTERPRETING PHYSICIAN: Rowena Woody M.D. INDICATION FOR EXAMINATION: This patient is a 47-year-old male being evaluated for intractable left frontal headache pain. Patient now with the MRA evidence of acute left internal carotid artery dissection. AGE: 47. EEG FINDINGS: A routine 21-channel awake digital EEG recording was accomplished utilizing the 10-20 international system with bipolar and referential montages. The background activity in the most alert resting state consists of a low to medium amplitude, fairly well developed and well sustained 7-8 Hertz activity over the posterior head regions. This posterior rhythm attenuates to eye opening. There is a small amount of low amplitude 18-20 Hertz beta activity seen maximally over the anterior head regions. Muscle and movement artifact was observed on a few occasions during the tracing. Hyperventilation was not performed. Photic stimulation at flash frequencies of 2-30 Hertz produced a minimal occipital driving response. No epileptiform discharges were seen. IMPRESSION: This EEG is within normal limits for the patient's age. The EEG failed to reveal any focal, lateralized, or epileptiform abnormalities. Clinical correlation is recommended. MMODL / IJN: [id number] /
== END 2017-05-12 15:27 | disposition other institution (70) | DRG 301 ==
LOC: EC 19:14 → INTOOBSV 23:54 → 5ONC 23:54 → 6SEL 05-11 19:37 → OBSVTOIN 05-12 13:33
PROVIDERS: ADMIT Hospitalist; ATTEND Hospitalist
DX: I77.71 Dissection of carotid artery (principal); H49.00 Third [oculomotor] nerve palsy, unspecified eye; I10 Essential (primary) hypertension; D72.829 Elevated white blood cell count, unspecified; T38.0X5A Adverse effect of glucocorticoids and synthetic analogues, initial encounter; G89.29 Other chronic pain; M62.81 Muscle weakness (generalized); M54.5 Low back pain; H02.402 Unspecified ptosis of left eyelid; I16.0 Hypertensive urgency; E04.1 Nontoxic single thyroid nodule; F17.200 Nicotine dependence, unspecified, uncomplicated; Z79.899 Other long term (current) drug therapy; Z82.3 Family history of stroke; Z79.1 Long term (current) use of non-steroidal anti-inflammatories (NSAID); Z79.891 Long term (current) use of opiate analgesic; Z79.52 Long term (current) use of systemic steroids; Z80.9 Family history of malignant neoplasm, unspecified
CPT/HCPCS: 36415; 70544; 70551; 80053; 82550; 82553; 84439; 84443; 84484; 85025; 85652; 86140; 93005; 95819; 96361; 96374; 96375; 99285

== ENCOUNTER → 2017-05-20 | Outpatient (CLI) | payer BC ==
--- NOTE | 2017-05-20 13:50 | US ---
EXAMINATION TYPE: US thyroid st tissue head/neck DATE OF EXAM: 05/20/2017 COMPARISON: CT 05/10/2017 CLINICAL HISTORY: R93.8 Abnormal Finding of imaging. Abnormal CT, pt states no known thyroid issues GLAND SIZE: Right Lobe: 6.8 x 3.3 x 4.2 cm Overall Parenchyma: heterogenous Left Lobe: 5.9 x 1.7 x 1.5 cm Overall Parenchyma: Slightly heterogeneous Isthmus Thickness: 0.4 cm NODULES RIGHT: # of nodules measured on right: 1 1. 5.0 X 3.4 x 3.6 cm isoechoic solid nodule at the mid/lower pole with well-defined margins; This nodule is wider than tall and shows intranodular vascularity. Prior size: Prior visualized on CT Bilateral neck scanned, no evidence of lymphadenopathy. Large, solid nodule on right as seen on CT IMPRESSION: 1. Large nodule right lobe thyroid. Consider biopsy. Correlate with laboratory results.
== END | disposition home or self-care (01) ==
LOC: RADUSWWP 07:08
PROVIDERS: ATTEND Family Medicine
DX: E04.1 Nontoxic single thyroid nodule (principal)
CPT/HCPCS: 76536

== ENCOUNTER → 2017-07-04 | Outpatient (CLI) | payer BC ==
--- NOTE | 2017-07-04 11:56 | MR ---
MR angiogram of the neck with and without contrast HISTORY: Carotid artery dissection, headaches, hypertension Multiplanar multisequence and postcontrast images obtained through the region of the carotid bifurcat ions following 11.5 cc Gadavist IV. Correlation to MR and MRA brain 05/12/2017 The proximal internal carotid artery on the left shows a luminal filling defect compatible with limit ed dissection or overhanging plaque. This is at the level approximately the C2 vertebral body just pe ripheral to the level of angle of the mandible. The internal carotid arteries are patent. External ca rotid arteries are patent. Vertebral arteries are patent. Transverse aorta, innominate, left and righ t common carotid, left and right subclavian arteries are patent. IMPRESSION: There is a limited dissection of the proximal internal carotid artery on the left versus overhanging plaque. This does not appear to be flow-limiting or hemodynamically significant.
== END | disposition home or self-care (01) ==
LOC: RADMRIMAIN 08:47
PROVIDERS: ATTEND Family Medicine
DX: I77.71 Dissection of carotid artery (principal)
CPT/HCPCS: 70549; A9581

== ENCOUNTER 2017-08-18 12:35 | Day surgery (SDC) | payer BC ==
[2017-08-18 12:55] VITALS: RESP 14; TEMP 97.9
[2017-08-18] MEDS ORDERED: ALPRAZolam 0.5 MG TAB PO STA (13:08)
[2017-08-18 14:39] VITALS: BP 148/89; PULSE 73
--- NOTE | 2017-08-18 14:42 | US ---
ULTRASOUND GUIDED FNA THYROID BIOPSY: CLINICAL HISTORY: Large right thyroid nodule FINDINGS: The procedure was explained to the patient. The risks, complications, benefits and alternatives were discussed and any questions were answered. Informed consent was obtained. Patient was placed supin e on the ultrasound table and prepped and draped in the usual sterile fashion. Utilizing a 25 gauge needle, five passes were made into the requested large right-sided thyroid nodule. Patient was stable throughout the procedure. Pathology is pending. All elements of maximal barrier technique were utilized. IMPRESSION: 1. Successful ultrasound guided FNA thyroid biopsy.
== END 2017-08-18 14:46 | disposition home or self-care (01) ==
LOC: RADPROMAIN 12:35
PROVIDERS: ATTEND Family Medicine
DX: E04.1 Nontoxic single thyroid nodule (principal)
CPT/HCPCS: 10022; 76942; 88173; 88305

== ENCOUNTER 2017-10-06 06:59 | Observation (INO) | payer BC ==
[2017-10-04 12:45] VITALS: BMI 32.8
[~2017-10-06 06:59] MED LIST: DEXAMETHASONE SOD PHOSPHATE 10 MG/ML 1 ML VIAL IV ONE; HEPARIN SODIUM,PORCINE 5,000 UNIT/ML 1 ML VIAL SQ ONE; LACTATED RINGERS 1,000 ML IV SCH; MIDAZOLAM 2 MG/2 ML VIAL IV PRN; ONDANSETRON 4 MG/2 ML VIAL IVP ONE; Pre Op ABX Message 1 EACH MISC MISCELLANE ONE
--- NOTE | 2017-10-06 07:48 | P.GSHP ---
History of Present Illness H&P Date: 10/06/17 Chief Complaint: right thyroid cancer this is a 47-year-old male who underwent workup of a right thyroid nodule. Patient's found have a 5 cm papillary thyroid cancer. Patient presents today for totalthyroidectomy. Patient is aware the risk of surgery including possible recurrent laryngeal nerve injury, vocal hoarseness or paralysis and injury or removal of parathyroid gland.the patient's had a previous CAT scan which shows no evidence of any significant lymphadenopathy. Past Medical History Past Medical History: Cancer, Hyperlipidemia, Hypertension, Thyroid Disorder Additional Past Medical History / Comment(s): hx:chronic back pain with "permanent rt leg sciatica nerve damage", dissection rt cartoid, thyroid cancer History of Any Multi-Drug Resistant Organisms: None Reported Past Surgical History: Back Surgery Past Anesthesia/Blood Transfusion Reactions: No Reported Reaction Smoking Status: Former smoker - Past Family History Father Family Medical History: Cancer Additional Family Medical History / Comment(s): melanoma Medications and Allergies Home Medications Medication Instructions Recorded Confirmed Type Cyclobenzaprine [Flexeril] 10 mg PO HS 05/10/17 10/06/17 History HYDROcodone/APAP 10-325MG [[place] 1 tab PO Q8H PRN 05/10/17 10/06/17 History 10-325] Atorvastatin [Lipitor] 40 mg PO HS 05/11/17 10/06/17 History Verapamil HCl [Verapamil ER] 240 mg PO AC-SUPPER 08/12/17 10/06/17 History Aspirin [Adult Low Dose Aspirin EC] 81 mg PO DAILY 08/18/17 10/06/17 History Losartan [Cozaar] 50 mg PO AC-SUPPER 08/18/17 10/06/17 History Allergies Allergy/AdvReac Type Severity Reaction Status Date / Time No Known Allergies Allergy Verified 10/06/17 07:15 Surgical - Exam Vital Signs Temp Pulse Resp BP Pulse Ox 97.7 F 74 16 176/112 96 10/06/17 07:18 10/06/17 07:18 10/06/17 07:18 10/06/17 07:18 10/06/17 07:18 - General well developed, no distress - Eyes PERRL - ENT normal pinna - Neck 4 cm enlarged right thyroid gland. No cervical lymphadenopathy trachea midline - Respiratory normal expansion - Cardiovascular Rhythm: regular - Abdomen Abdomen: soft, non tender Assessment and Plan Assessment: right thyroid cancer. We'll perform total thyroidectomy. The risks and complications of the procedure were reviewed with the patient in the preoperative hold area and again.
[2017-10-06] MEDS ORDERED: LIDOCAINE 1% INJ 10MG/ML (20 ML MDV) ONE (07:55)
[2017-10-06] MEDS ORDERED: SUCCINYLCHOLINE CHLORIDE 100 MG/5 ML SYR IV ONE (07:55)
[2017-10-06] MEDS ORDERED: PROPOFOL 10 MG/ML 20 ML VIAL IV ONE (07:55)
[2017-10-06] MEDS ORDERED: fentaNYL (PF) 50 MCG/ML 2 ML AMP ONE (07:55)
[2017-10-06] MEDS ORDERED: MIDAZOLAM 2 MG/2 ML VIAL ONE (07:55)
[2017-10-06] MEDS ORDERED: SODIUM CHLORIDE 0.9% 50 ML with ceFAZolin 2,000 MG IV ONE ×2 (08:21)
[2017-10-06] MEDS ORDERED: LACTATED RINGERS 1,000 ML IV ONE ×3 (10:11→11:59)
[2017-10-06] MEDS ORDERED: NALOXONE 0.4 MG/ML 1 ML VIAL IV PRN (10:24)
[2017-10-06] MEDS ORDERED: HYDROmorphone 4 MG/ML 1 ML SYRINGE IVP PRN (10:24)
[2017-10-06] MEDS ORDERED: BISACODYL 10 MG SUPP RECTAL PRN (10:24)
[2017-10-06] MEDS ORDERED: ONDANSETRON 4 MG/2 ML VIAL IVP PRN (10:24)
[2017-10-06] MEDS: HYDROmorphone 0.5 MG/0.5 ML SYRINGE IVP PRN ×8 (10:30→21:54)
[2017-10-06] MEDS ORDERED: MEPERIDINE 50 MG/ML SYRINGE IVP ONE ×2 (11:00→11:08)
[2017-10-06] MEDS: HYDROcodone/APAP 5-325MG 1 EACH TAB PO PRN ×3 (13:03→21:06)
--- NOTE | 2017-10-06 14:40 | P.CONS ---
History of Present Illness - Reason for Consult Recommendations regarding antihypertensive medications - History of Present Illness 47-year-old man came in now for total thyroidectomy for papillary carcinoma of the thyroid and patient the post surgery is still in pain and the still coming out of anesthesia. Patient denied any fever, chills, nausea, vomiting, dysuria. Patient blood pressure is elevated because of pain and patient will be resumed on his antidepressive medications. Review of Systems REVIEW OF SYSTEMS: CONSTITUTIONAL: No fever, no malaise, no fatigue. HEENT: No recent visual problems or hearing problems. Denied any sore throat. CARDIOVASCULAR: No chest pain, orthopnea, PND, no palpitations, no syncope. PULMONARY: No shortness of breath, no cough, no hemoptysis. GASTROINTESTINAL: No diarrhea, no nausea, no vomiting, no abdominal pain. Normoactive bowel sounds. NEUROLOGICAL: No headaches, no weakness, no numbness. HEMATOLOGICAL: Denies any bleeding or petechiae. GENITOURINARY: Denies any burning micturition, frequency, or urgency. MUSCULOSKELETAL/RHEUMATOLOGICAL: Denies any joint pain, swelling, or any muscle pain. ENDOCRINE: Denies any polyuria or polydipsia. The rest of the 14-point review of systems is negative. Past Medical History Past Medical History: Cancer, Hyperlipidemia, Hypertension, Thyroid Disorder Additional Past Medical History / Comment(s): hx:chronic back pain with "permanent rt leg sciatica nerve damage", dissection rt cartoid, thyroid cancer History of Any Multi-Drug Resistant Organisms: None Reported Past Surgical History: Back Surgery Past Anesthesia/Blood Transfusion Reactions: No Reported Reaction Smoking Status: Former smoker - Past Family History Father Family Medical History: Cancer Additional Family Medical History / Comment(s): melanoma Medications and Allergies Home Medications Medication Instructions Recorded Confirmed Type Cyclobenzaprine [Flexeril] 10 mg PO HS 05/10/17 10/06/17 History HYDROcodone/APAP 10-325MG [[place] 1 tab PO Q8H PRN 05/10/17 10/06/17 History 10-325] Atorvastatin [Lipitor] 40 mg PO HS 05/11/17 10/06/17 History Verapamil HCl [Verapamil ER] 240 mg PO AC-SUPPER 08/12/17 10/06/17 History Aspirin [Adult Low Dose Aspirin EC] 81 mg PO DAILY 08/18/17 10/06/17 History Losartan [Cozaar] 100 mg PO AC-SUPPER 08/18/17 10/06/17 History Allergies Allergy/AdvReac Type Severity Reaction Status Date / Time No Known Allergies Allergy Verified 10/06/17 07:15 Physical Exam Vitals: Vital Signs Temp Pulse Resp BP Pulse Ox 10/06/17 11:25 70 16 170/95 94 L 10/06/17 11:10 62 16 155/89 98 10/06/17 10:55 72 16 169/94 98 10/06/17 10:40 70 16 167/102 98 10/06/17 10:25 97.9 F 81 16 162/92 98 10/06/17 07:28 69 16 148/91 10/06/17 07:18 97.7 F 74 16 176/112 96 Intake and Output 10/05/17 10/06/17 10/06/17 22:59 06:59 14:59 Intake Total 2049 Output Total 25 Balance 2024 Intake: IV 2049 Output: Estimated Blood Loss 25 PHYSICAL EXAMINATION: GENERAL: The patient is alert and oriented x3, not in any acute distress. Well developed, well nourished. HEENT: Pupils are round and equally reacting to light. EOMI. No scleral icterus. No conjunctival pallor. Normocephalic, atraumatic. No pharyngeal erythema. Patient has a thyroidectomy scar CARDIOVASCULAR: S1 and S2 present. No murmurs, rubs, or gallops. PULMONARY: Chest is clear to auscultation, no wheezing or crackles. ABDOMEN: Soft, nontender, nondistended, normoactive bowel sounds. No palpable organomegaly. MUSCULOSKELETAL: No joint swelling or deformity. EXTREMITIES: No cyanosis, clubbing, or pedal edema. NEUROLOGICAL: Gross neurological examination did not reveal any focal deficits. SKIN: No rashes. Assessment and Plan Plan: -Status post thyroidectomy postoperative day 0: Pain management as per primary care service and patient may need calcium and basic metabolic profile tested tomorrow. -Hypertension patient will be resumed on his home regimen patient blood pressure is elevated secondary to pain for which patient is on appropriate medications. -Hypertension -Hyperlipidemia
[2017-10-06] MEDS ORDERED: VERAPAMIL SR 240 MG TABLET.ER PO SCH (17:30)
[2017-10-06] MEDS ORDERED: LOSARTAN 50 MG TAB PO SCH (17:30)
[2017-10-06] MEDS ORDERED: CYCLOBENZAPRINE 10 MG TAB PO SCH (21:00)
[2017-10-06] MEDS ORDERED: ATORVASTATIN 40 MG TAB PO SCH (21:00)
[2017-10-07] MEDS: HYDROmorphone 0.5 MG/0.5 ML SYRINGE IVP PRN ×3 (01:44→08:13)
[2017-10-07] MEDS: HYDROcodone/APAP 5-325MG 1 EACH TAB PO PRN (06:24)
[2017-10-07 08:18] VITALS: BP 150/98; PULSE 82; RESP 20; TEMP 98
[2017-10-07] MEDS ORDERED: ENOXAPARIN 40 MG/0.4 ML SYRINGE SQ SCH (09:00)
[2017-10-07] MEDS ORDERED: ASPIRIN 81 MG PO SCH (09:00)
--- NOTE | 2017-10-07 09:40 | P.DS ---
Providers Date of admission: 10/07/17 01:24 Expected date of discharge: 10/07/17 Attending physician: Santiago Elizalde Consults: 10/06/17 10:24 Consult Physician Routine Consulting Provider: Cristal Escamilla Consult Reason/Comments: Medical management Do you want consulting provider notified?: Yes Primary care physician: Clara Barton Hospital Course: 47-year-old male who was noted to have a 5 cm papillary thyroid nodule workup showed papillary thyroid cancer. Patient presented on the day of admission to undergo a total thyroidectomy. Done on October 06. Postprocedure patient was tolerating a clear liquid diet no numbness to the face slight swelling along the surgical incision line pain medication effective for pain control voice was not hoarse patient was felt to be hemodynamically stable and appropriate proceed with a discharge to home the calcium level on October 06 9.1 patient was felt to be appropriate to be discharged home Impression discharge diagnosis Chronic lower back pain opiate dependency Postop October 06 total thyroidectomy for papillary cancer of the thyroid Hypertension Depressive disorder nonspecified Hyperlipidemia The above impression and plan of care have been discussed and directed by signing physician. Irma Wagner nurse practitioner acting as scribe for signing physician. Plan - Discharge Summary Discharge Rx Participant: Yes New Discharge Prescriptions: Continue Cyclobenzaprine [Flexeril] 10 mg PO HS Atorvastatin [Lipitor] 40 mg PO HS Verapamil HCl [Verapamil ER] 240 mg PO AC-SUPPER Aspirin [Adult Low Dose Aspirin EC] 81 mg PO DAILY Losartan Potassium 100 mg PO AC-SUPPER HYDROcodone/APAP 10-325MG [[place] 10-325] 1 tab PO Q8H PRN #30 tab PRN Reason: Pain Discharge Medication List Cyclobenzaprine [Flexeril] 10 mg PO HS 05/10/17 [History] Atorvastatin [Lipitor] 40 mg PO HS 05/11/17 [History] Verapamil HCl [Verapamil ER] 240 mg PO AC-SUPPER 08/12/17 [History] Aspirin [Adult Low Dose Aspirin EC] 81 mg PO DAILY 08/18/17 [History] HYDROcodone/APAP 10-325MG [[place] 10-325] 1 tab PO Q8H PRN #30 tab 10/07/17 [Rx] Losartan Potassium 100 mg PO AC-SUPPER 10/07/17 [History] Follow up Appointment(s)/Referral(s): Santiago Elizalde MD [STAFF PHYSICIAN] - 10/18/17 2:00 pm Nancy Penaloza MD [STAFF PHYSICIAN] - 1 Week Care Plan Goals (MU): No tub bath for six weeks. Shower daily. No lifting over 4 pounds for the next 6 weeks. May use ice packs to surgical site. No driving while taking narcotic for pain. Discharge Disposition: HOME SELF-CARE
[2017-10-07] MEDS ORDERED: HYDROcodone/APAP 10-325MG 1 EACH TAB PO PRN (11:06)
--- NOTE | 2017-10-07 13:25 | P.OP ---
Date of Procedure: 10/06/17 Preoperative Diagnosis: right thyroid cancer Postoperative Diagnosis: right thyroid cancer Procedure(s) Performed: total thyroidectomy with lymph node biopsy Anesthesia: DAIANA Surgeon: Santiago Elizalde Estimated Blood Loss (ml): 10 Pathology: other (total thyroidectomy, biopsy) Condition: stable Disposition: PACU Description of Procedure: patient's placed on the operating table in supine position. heee received general anesthesia. Her neck was positioned and extended. The neck and chest wall was prepped and draped usual sterile fashion. A standard Ike incision wasperformed. Using left cautery the platysma was divided. And then the strap muscles were divided midline. Using So retractors the right thyroid gland was exposed. Using a blood pressure the thyroid gland was dissected. The inferior thyroid vessels were ligated between 3-0 silk ties. The specimen divided. Next the superior thyroid vessels were dissected using a right angle dissector and then they were divided between 2-0 silk ties. The gland was rotated medially and using meticulous dissection the middle thyroid vein was dissected and divided and ligated with 3-0 GI silk suture. Care was taken to identify and preserve the recurrent laryngeal nerve. The right thyroid gland was quite large with a 5 cm nodule within the gland. The dissection was then performed of the trachea using the Harmonic scissors. Next the left lobe wasdissected. The inferior thyroid vessels were ligated between 3-0 silk ties and then the superior vessels were ligated between 2-0 silk ties. The gland was rotated medially care was taken to identify and preserve the recurrent laryngeal nerve. And then the middle thyroid vein was divided. The thyroid gland was then dissected off the trachea using Harmonic scissors. The specimen sent to pathology. The wound was inspected. There is no significant bleeding seen. There was a questionable enlarged lymph node this was dissected free and sent to pathology. No other enlarged lymph nodes were seen. At this point the strap muscles were reapproximated using 3-0 Vicryl. The platysma was closed with 3-0 Vicryl. Skin was closed interrupted 3-0 Monocryl suture. Dermabond dressing was applied patient was sent to recovery in stable condition.
--- NOTE | 2017-10-07 19:07 | PN ---
PROGRESS NOTE DATE OF SERVICE: 10/07/2017 This is 47-year-old gentleman who was admitted after thyroidectomy is improving significantly. No chest pain. No palpitations. No fever. EXAM: Alert and oriented x3. Pulse is 75, blood pressure 140/87, respiratory 12, temperature 96.8, pulse ox 100% on room air. HEENT: Conjunctivae normal. CARDIOVASCULAR: S1, S2. RESPIRATORY: Breath sounds diminished in the bases. No rhonchi, no crackles. ABDOMEN: Soft, nontender. No distention. NERVOUS SYSTEM: No focal deficits. NECK: Status post surgery. LABS: Calcium 9.7, 9.1, 9.3, 9.1. ASSESSMENT: 1. Status post thyroidectomy. 2. Hypertension. 3. Hyperlipidemia. 4. Chronic back pain and degenerative joint disease. RECOMMENDATIONS AND DISCUSSION: I recommend to continue the current management, continue symptomatic treatment. Incentive spirometry. Continue to monitor. Closely follow with primary physician as well as Endocrinology. Further recommendations to follow. MMODL / IJN: [id number] /
== END 2017-10-07 13:00 | disposition home or self-care (01) ==
LOC: OR 06:59 → 3SUR 10:10 → OR 10-07 01:24
PROVIDERS: ADMIT Surgery; ATTEND Surgery
DX: C73 Malignant neoplasm of thyroid gland (principal); I10 Essential (primary) hypertension; E78.5 Hyperlipidemia, unspecified; G89.29 Other chronic pain; M54.5 Low back pain; M54.31 Sciatica, right side; F11.20 Opioid dependence, uncomplicated; F32.9 Major depressive disorder, single episode, unspecified; Z79.82 Long term (current) use of aspirin; Z79.899 Other long term (current) drug therapy; Z87.891 Personal history of nicotine dependence; Z80.8 Family history of malignant neoplasm of other organs or systems
CPT/HCPCS: 60252; 88305; 82310; 88307; G0378; J2250; J1644; J1100; J2175; J2405; J2001; J1650; J3010; J0690; J0330; J2704; J1170 ×2

== ENCOUNTER → 2017-10-17 | Outpatient (CLI) | payer BC ==
[2017-10-17 19:29] LABS: Thyroglobulin >300.00 ng/mL (1.60-59.90)
== END | disposition home or self-care (01) ==
LOC: LABWHC1 09:33
PROVIDERS: ATTEND Internal Medicine Endocrinology, Diabetes & Metabolism
DX: C73 Malignant neoplasm of thyroid gland (principal)
CPT/HCPCS: 36415; 84432; 84443; 86800

== ENCOUNTER → 2017-11-25 | Outpatient (CLI) | payer BC ==
[2017-11-25 20:07] LABS: Thyroglobulin 7.79 ng/mL (1.60-59.90)
== END | disposition home or self-care (01) ==
LOC: LABWHC1 11:48
PROVIDERS: ATTEND Internal Medicine Endocrinology, Diabetes & Metabolism
DX: C73 Malignant neoplasm of thyroid gland (principal)
CPT/HCPCS: 36415; 84432; 86800

== ENCOUNTER → 2017-12-05 | Outpatient (CLI) | payer BC ==
[~2017-12-05] MED LIST changes: -DEXAMETHASONE SOD PHOSPHATE 10 MG/ML 1 ML VIAL IV ONE; -HEPARIN SODIUM,PORCINE 5,000 UNIT/ML 1 ML VIAL SQ ONE; -LACTATED RINGERS 1,000 ML IV SCH; -MIDAZOLAM 2 MG/2 ML VIAL IV PRN; -ONDANSETRON 4 MG/2 ML VIAL IVP ONE; -Pre Op ABX Message 1 EACH MISC MISCELLANE ONE; +THYROTROPIN ALFA 1.1 MG VIAL IM ONE
[2017-12-05 12:27] VITALS: RESP 14
[2017-12-06 12:25] VITALS: BP 186/92; PULSE 80; TEMP 97.7
[2017-12-06 14:26] LABS: T4, Free (Free Thyroxine) 1.19 ng/dL (0.78-2.19)
--- NOTE | 2017-12-06 15:25 | NM ---
EXAMINATION: NM Thyroid I-131 therapy for cancer (outpatient) DATE: 12/06/2017 HISTORY: 47-year-old male with thyroid cancer. Resection of a 5 cm follicular variant of papillary th yroid cancer confined to the thyroid gland on October 06, 2017. Patient treated for 2 consecutive day s with Thyrogen and is being maintained on a low iodine diet. COMPARISON: Correlation ultrasound 08/18/2017. RADIOTRACER: 100 mCi I-131. TECHNIQUE: Patient was injected for 2 consecutive days with Thyrogen. Patient has been maintained on low iodine diet for 2 weeks. Dose was prescribed (written directive) by an Authorized User in conjunction with treatment request fernando Penaloza. Risks, benefits, and potential complications of radioactive I-131 therapy were discussed in detail wi th the patient by myself and the nuclear powerplant mechanic. Verbal and written informed consent wer e obtained. Written instructions were given for radiation safety precautions to be observed for 5 day s outpatient. The patient specific exposure calculations were done by RSO to ensure estimated max dose to any indiv idual exposed to the patient was less than 5 mSv. The patient was specifically advised to avoid close contact with children, women, and other members of public. Dose was verified in dose caliber and patient was given oral I-131 pill under the supervision of me galen raphael the nuclear powerplant mechanic. There were no immediate complications. IMPRESSION: Outpatient 100 mCi I-131 oral therapy capsule for thyroid cancer remnant ablation. The patient will f ollow-up next week for post ablation whole body scan.
[2017-12-06 19:29] LABS: Thyroglobulin 7.88 ng/mL (1.60-59.90)
== END | disposition home or self-care (01) ==
LOC: RADNMMAIN 12:12
PROVIDERS: ATTEND Internal Medicine Endocrinology, Diabetes & Metabolism
DX: C73 Malignant neoplasm of thyroid gland (principal); E89.0 Postprocedural hypothyroidism
CPT/HCPCS: 79005; 84432; 84439; 84443; 86800

== ENCOUNTER → 2017-12-16 | Outpatient (CLI) | payer BC ==
--- NOTE | 2017-12-19 08:37 | NM ---
EXAMINATION TYPE: NM I-131 Thyroid CA POST TREATMENT WHOLE BODY SCAN DATE OF EXAM ORDERED: 12/16/2017 HISTORY: 47-year-old male with thyroid cancer. Resection of a 5 cm follicular variant of papillary th yroid cancer confined to the thyroid gland on October 06, 2017. Ten-day follow-up posttreatment scan. COMPARISON: Ultrasound 08/18/2017 TECHNIQUE: Following the oral administration of 100 mCi I-131 on 12/06/2017, whole-body scan was perfo rmed 10 days after radiotracer administration. There was technical limitation in that the whole body collimator was unavailable for conventional whole body imaging. FINDINGS: There is physiologic uptake within the salivary glands, nasopharynx, and bladder. There is focal radioactive iodine accumulation in the midline thyroidectomy bed but asymmetric intens e activity towards the right of midline. No additional abnormal tracer activity is seen. IMPRESSION: 1. Asymmetric intense activity along the right side of the thyroidectomy bed likely relating to promi nent remnant ablation. Routine clinical surveillance recommended including correlation with thyroglob ulin levels and neck ultrasound. 2. Otherwise, no scintigraphic evidence for metastatic disease from the skull vertex down to the mid thighs.
== END | disposition home or self-care (01) ==
LOC: RADNMMAIN 12-05 13:36
PROVIDERS: ATTEND Internal Medicine Endocrinology, Diabetes & Metabolism
DX: Z53.9 Procedure and treatment not carried out, unspecified reason (principal)

== ENCOUNTER → 2018-01-02 | Outpatient (CLI) | payer BC ==
--- NOTE | 2018-01-02 14:58 | MR ---
EXAMINATION TYPE: MR angio neck wo con DATE OF EXAM: 01/02/2018 COMPARISON: 05/12/2017 and 07/04/2017 HISTORY: Dissection of carotid artery TECHNIQUE: Standard multiplanar, multisequence MRI departmental protocol without gadolinium using gianni e-of-flight imaging for MRA neck. 3-D reconstructions generated on a dedicated independent workstati on. FINDINGS: Hypointense intimal flap is redemonstrated at the cervical segment of the left internal car otid artery focally with an outpouching at this location measuring 3 mm, similar to the prior. There is stable approximately 50% stenosis within the short segment. The previously seen abnormality within the vertical portion of the petrous segment of the left internal carotid artery is not redemonstrate d. Again this finding is near the angle of mandible. Common carotid arteries and internal carotid art eries are patent. External carotid arteries also appear patent. Vertebral arteries are similarly bautista nt with slight dominance of the left vertebral artery. Visualized portions of the great vessels are u nremarkable. The previously seen large right thyroid lesion is no longer present and presumed to be s urgically absent IMPRESSION: Stable focal short segment left internal carotid artery cervical segment dissection with focal 3 mm o utpouching creating approximately 50% stenosis. This is in comparison to the prior exams of 07/04/2017 and 05/12/2017.
== END | disposition home or self-care (01) ==
LOC: RADMRIMAIN 12:46
PROVIDERS: ATTEND Psychiatry & Neurology Vascular Neurology
DX: I77.71 Dissection of carotid artery (principal); I65.22 Occlusion and stenosis of left carotid artery
CPT/HCPCS: 70547

== ENCOUNTER → 2019-01-03 | Outpatient (CLI) | payer BC ==
--- NOTE | 2019-01-03 11:03 | US ---
EXAMINATION TYPE: US thyroid st tissue head/neck DATE OF EXAM: 01/03/2019 COMPARISON: US 2017 CLINICAL HISTORY: 48-year-old male C73 MALIGNANT NEOPLASM OF THYROID. History of thyroid CA, thyroide ctomy 2018, on thyroid meds TECHNIQUE: Multiple sonographic images of the thyroid gland are obtained. FINDINGS: GLAND SIZE: Right Lobe: surgically absent Left Lobe: surgically absent Isthmus Thickness: surgically absent THYROID BED RIGHT: wnl LEFT: wnl ISTHMUS: wnl Bilateral neck scanned, no evidence of lymphadenopathy. IMPRESSION: Status post thyroidectomy. No residual tissue or suspicious nodule seen within the thyroidectomy bed.
[2019-01-03 21:14] LABS: Thyroglobulin <0.20 ng/mL (1.60-59.90)
== END | disposition home or self-care (01) ==
LOC: RADUSWWP 09:03
PROVIDERS: ATTEND Internal Medicine Endocrinology, Diabetes & Metabolism
DX: C73 Malignant neoplasm of thyroid gland (principal); Z90.09 Acquired absence of other part of head and neck
CPT/HCPCS: 76536; 84432; 84443; 86800

== ENCOUNTER → 2019-08-16 | Outpatient (CLI) | payer BC | END | disposition home or self-care (01) | LOC: LABWHC1 11:31 | PROVIDERS: ATTEND Internal Medicine Endocrinology, Diabetes & Metabolism | DX: C73 Malignant neoplasm of thyroid gland (principal) | CPT/HCPCS: 36415; 84432; 84443; 86800 ==

== ENCOUNTER → 2020-03-03 | Outpatient (CLI) | payer BC ==
--- NOTE | 2020-03-03 15:44 | US ---
EXAMINATION TYPE: US thyroid st tissue head/neck DATE OF EXAM: 03/03/2020 COMPARISON: NONE CLINICAL HISTORY: C73 MALIGNANT NEOPLASM OF THYROID GLAND. Thyroidectomy, history of thyroid CA GLAND SIZE: Right Lobe: Surgically absent Left Lobe: Surgically absent cm NODULES RIGHT: # of nodules measured on right: 0 LEFT: # of nodules measured on left: 0 ISTHMUS: # of nodules measured in the isthmus: 0 Bilateral neck scanned, no evidence of lymphadenopathy. No sonographic abnormalities visualized IMPRESSION: The thyroid gland is surgically absent. Residual nonenhancing pain.
== END | disposition home or self-care (01) ==
LOC: RADUSWWP 15:20
PROVIDERS: ATTEND Internal Medicine Endocrinology, Diabetes & Metabolism
DX: C73 Malignant neoplasm of thyroid gland (principal)
CPT/HCPCS: 76536

== ENCOUNTER → 2020-05-02 | Outpatient (CLI) | payer BC ==
--- NOTE | 2020-05-05 09:20 | US ---
EXAMINATION TYPE: US kidneys/renal and bladder DATE OF EXAM: 05/02/2020 COMPARISON: NONE CLINICAL HISTORY: 50-year-old male N28.89 left renal mass. Patient states there is a mass seen on his left kidney that was seen on recent MRI at [facility]. TECHNIQUE: Multiple sonographic images of the kidneys and bladder are obtained. FINDINGS: EXAM MEASUREMENTS: Right Kidney: 12.4 x 6.0 x 6.8 cm Left Kidney: 12.9 x 6.4 x 5.6 cm Kidneys: No hydronephrosis. No mass identified by ultrasound. Bladder: wnl Bilateral Jets seen: yes IMPRESSION: No hydronephrosis. No mass identified in the left kidney by ultrasound. Note that ultrasound has low sensitivity for the detection of small solid renal masses. Consider making the patient's outside MRI available for review. If there is persistent concern for a renal mass, consider dedicated renal mass protocol MRI.
== END | disposition home or self-care (01) ==
LOC: RADUSWWP 15:36
PROVIDERS: ATTEND Orthopaedic Surgery Orthopaedic Surgery of the Spine
DX: N28.89 Other specified disorders of kidney and ureter (principal)
CPT/HCPCS: 76770

== ENCOUNTER → 2020-10-06 | Outpatient (CLI) | payer BC | END | disposition home or self-care (01) | LOC: LABT 14:22 | PROVIDERS: ATTEND Internal Medicine Endocrinology, Diabetes & Metabolism | DX: C73 Malignant neoplasm of thyroid gland (principal) | CPT/HCPCS: 84432; 84443; 86800 ==

== ENCOUNTER → 2020-10-06 | Outpatient (CLI) | payer BC ==
--- NOTE | 2020-10-07 09:16 | US ---
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 Headaches EXAM MEASUREMENTS: RIGHT: Peak Systolic Velocity (PSV) cm/sec ----- Right CCA: 85.4 ----- Right ICA: 74.3 ----- Right ECA: 80.3 ICA/CCA ratio: 0.9 RIGHT: End Diastole cm/sec ----- Right CCA: 15.9 ----- Right ICA: 28.6 ----- Right ECA: 15.0 LEFT: Peak Systolic Velocity (PSV) cm/sec ----- Left CCA: 45.7 ----- Left ICA: 68.9 ----- Left ECA: 94.3 ICA/CCA ratio: 1.5 LEFT: End Diastole cm/sec ----- Left CCA: 14.0 ----- Left ICA: 29.4 ----- Left ECA: 19.1 VERTEBRALS (direction of flow): Right Vertebral: Antegrade Left Vertebral: Antegrade Rhythm: Normal No elevated velocities, no significant stenosis . No significant plaquing or intimal thickening is ev ident. IMPRESSION: 1. Normal-appearing bilateral carotid Doppler ultrasound Criteria for Assigning % of Stenosis / Diameter reduction (Estimation based on the indirect measurements of the internal carotid artery velocities (ICA PSV). 1. Normal (no stenosis)=ICA PSV < 125 cm/s: ratio < 2.0: ICA EDV<40 cm/s. 2. Less than 50% stenosis=ICA PSV < 125 cm/s: ratio < 2.0: ICA EDV<40 cm/s. 3. 50 to 69% stenosis=ICA PSV of 125 to 230 cm/s: ration 2.0 ? 4.0: ICA EDV 40-100 cm/s. 4. Greater than 70% stenosis to near occlusion= ICA PSV > 230 cm/s: ratio > 4.0: ICA EDV > 100 cm/s. 5. Near occlusion= ICA PSV velocities may be low or undetectable: variable ratio and ICA EDV. 6. Total occlusion=unable to detect flow.
== END | disposition home or self-care (01) ==
LOC: RADUSWWP 15:05
PROVIDERS: ATTEND Family Medicine
DX: I77.71 Dissection of carotid artery (principal); I10 Essential (primary) hypertension; E78.2 Mixed hyperlipidemia
CPT/HCPCS: 93880

== ENCOUNTER → 2021-01-27 | Outpatient (CLI) | payer BC | END | disposition home or self-care (01) | LOC: LABWHC1 14:43 | PROVIDERS: ATTEND Internal Medicine Endocrinology, Diabetes & Metabolism | DX: C73 Malignant neoplasm of thyroid gland (principal) | CPT/HCPCS: 36415; 84432; 84443; 86800 ==

== ENCOUNTER 2021-03-12 06:25 | Day surgery (SDC) | payer BC ==
[2021-03-11 10:42] VITALS: BMI 33.1
[~2021-03-12 06:25] MED LIST changes: +DEXAMETHASONE SOD PHOSPHATE 4 MG/ML 1 ML VIAL IV ONE; +DEXAMETHASONE SOD PHOSPHATE 4 MG/ML 1 ML VIAL IV PRN; +FAMOTIDINE 20 MG/2 ML VIAL IV PRN; +LACTATED RINGERS 1,000 ML IV SCH; +ONDANSETRON 4 MG/2 ML VIAL IVP ONE; +ONDANSETRON 4 MG/2 ML VIAL IVP PRN; -THYROTROPIN ALFA 1.1 MG VIAL IM ONE
[2021-03-12] MEDS ORDERED: LIDOCAINE 1% (10MG/ML) FOR IV START INTRADERMA ONE (07:00)
[2021-03-12] MEDS: OXYMETAZOLINE 0.05% NASL SPRAY 1 SPRAY BOTTLE EA NOSTRIL PRN ×5 (07:08→07:28)
[2021-03-12] MEDS ORDERED: ROCURONIUM 10 MG/ML (5 ML VIAL) IV ONE (07:29)
[2021-03-12] MEDS ORDERED: SUCCINYLCHOLINE CHLORIDE 100 MG/5 ML SYR IV ONE (07:29)
[2021-03-12] MEDS ORDERED: fentaNYL (PF) 50 MCG/ML 2 ML AMP ONE (07:29)
[2021-03-12] MEDS ORDERED: LIDOCAINE 1% INJ 10MG/ML (20 ML MDV) ONE (07:29)
[2021-03-12] MEDS ORDERED: ceFAZolin 1,000 MG VIAL ONE (07:29)
[2021-03-12] MEDS ORDERED: ePHEDrine SULFATE/0.9% NACL/PF 50 MG/5 ML SYRINGE IV ONE (07:29)
[2021-03-12] MEDS ORDERED: MIDAZOLAM 2 MG/2 ML VIAL ONE (07:29)
[2021-03-12] MEDS ORDERED: GLYCOPYRROLATE 0.2 MG/ML 2 ML VIAL ONE (07:29)
[2021-03-12] MEDS ORDERED: NEOSTIGMINE 1 MG/ML 10 ML VIAL ONE (07:29)
[2021-03-12] MEDS ORDERED: PROPOFOL 10 MG/ML 20 ML VIAL IV ONE (07:29)
[2021-03-12] MEDS ORDERED: BUPIVACAINE (PF) 0.5% 30 ML VIAL SQ ONE ×2 (07:51)
[2021-03-12] MEDS ORDERED: LIDOCAINE 1%-EPI 1:100,000 20 ML VIAL SQ ONE ×2 (07:52)
[2021-03-12 08:56] VITALS: TEMP 97
[2021-03-12] MEDS: HYDROmorphone 0.5 MG/0.5 ML SYRINGE IVP PRN ×2 (08:57→09:14)
--- NOTE | 2021-03-12 09:28 | P.OP ---
Date of Procedure: 03/12/21 Preoperative Diagnosis: Deviated Nasal Septum Hypertrophy of inferior turbinates Postoperative Diagnosis: Same Procedure(s) Performed: Septoplasty Bilateral submucosal resection of inferior nasal turbinates Anesthesia: DIANAA Surgeon: Aleksandr Cerda Estimated Blood Loss (ml): 5 Pathology: other (nasal) Condition: stable Disposition: PACU Indications for Procedure: This patient presented to the office with severe nasal obstruction and intolerant to CPAP because he was unable to breathe through his nose. He tried Flonase with no improvement he was found have a very severe deviated nasal septum with large obstructive inferior turbinates and failed medical therapy and surgical correction was advised. All risks, benefits, and alternative therapies were discussed. Consent was obtained and all questions were answered. Operative Findings: Patient had a severe deviated nasal septum with near 100% occlusion with large obstructive inferior turbinates. Description of Procedure: DESCRIPTION OF OPERATION: This patient was taken to the operative room and placed in the supine position. A general inhalation anesthetic was administered to the patient by the department of anesthesia with a functioning IV line in place. The patient was monitored throughout the entire case by the department of anesthesia. The eyes were taped shut for protection. The patient was placed in a slight reverse Trendelenburg position. The patient had previously utilize Afrin nasal spray preoperatively. The nose was evaluated and the septum lateral nasal wall and inferior turbinates were injected with lidocaine 1% with epinephrine 1 100,000 bilaterally. Approximately 10 minutes were allowed wait for full vasoconstrictive effects to take place. At this point a caudal incision was made over the caudal portion of the left septum down to the mucoperichondrium. A mucoperichondrial flap was elevated on the left side and dissection was carried with use of tunnels posteriorly. We then made a crossover incision through the cartilage to the contralateral side and for the mucoperichondrial flap development was performed to the extent of visualization on the contralateral side. After the cartilage was freed with use of several crosshatching incisions and removal of some redundant strips of septal cartilage, the septum was straightened and placed back in the midline. The septum was sutured fixated to the vomerian groove. Excellent straightening occurred and the septum was visibly straight. Incision was closed with a 40 rapid Vicryl. We utilized a running nonlocking fashion for closure of the incision. A quilting stitch was used to reapproximate the septal flaps with use of a 40 rapid Vicryl. Intranasal splints were inserted and fixated at the end of the case. We utilized Morgan nasal splints. They will be removed and the patient returns to the office. Attention was then paid to the inferior turbinates. The bilateral inferior turbinates were hypertrophic and obstructive. We entered the anterior portion of the inferior turbinates with use of a microdebrider. We remove bone and submucosal elements with use of a microdebrider bilaterally. The inferior turbinates underwent a submucosal resection with removal of submucosal tissue and bone. We obtained a much better and normal in size for breathing. The inferior turbinates were then outfractured and compressed with a [employer] nasal elevator. Excellent airway was obtained and was symmetric bilaterally. No bleeding was encountered.
[2021-03-12] MEDS ORDERED: oxyCODONE-APAP 5-325MG 1 EACH TAB ONE (09:39)
[2021-03-12] MEDS ORDERED: oxyCODONE-APAP 5-325MG 1 EACH TAB PO ONE (09:40)
[2021-03-12 10:19] VITALS: BP 146/79; PULSE 57; RESP 20
== END 2021-03-12 10:36 | disposition home or self-care (01) ==
LOC: OR 06:25
PROVIDERS: ATTEND Otolaryngology
DX: J34.2 Deviated nasal septum (principal); J34.3 Hypertrophy of nasal turbinates; I10 Essential (primary) hypertension; K13.79 Other lesions of oral mucosa; G47.33 Obstructive sleep apnea (adult) (pediatric); Z87.891 Personal history of nicotine dependence; E78.5 Hyperlipidemia, unspecified; E03.9 Hypothyroidism, unspecified; K21.9 Gastro-esophageal reflux disease without esophagitis; Z79.890 Hormone replacement therapy; E66.9 Obesity, unspecified; Z68.32 Body mass index [BMI] 32.0-32.9, adult; Q33.2 Sequestration of lung; Z98.890 Other specified postprocedural states; J30.2 Other seasonal allergic rhinitis; Z79.1 Long term (current) use of non-steroidal anti-inflammatories (NSAID); Z79.891 Long term (current) use of opiate analgesic; Z79.899 Other long term (current) drug therapy
CPT/HCPCS: 88300; 30520; 30140; J2250; J1100; J2710; J2405; J0690; J2001; J3010; J0330; J2704; J1170

== ENCOUNTER → 2021-05-18 | Outpatient (CLI) | payer BC | END | disposition home or self-care (01) | LOC: LABWHC1 10:20 | PROVIDERS: ATTEND Internal Medicine Endocrinology, Diabetes & Metabolism | DX: C73 Malignant neoplasm of thyroid gland (principal) | CPT/HCPCS: 36415; 84432; 84443; 86800 ==

== ENCOUNTER → 2021-09-10 | Outpatient (CLI) | payer BC | END | disposition home or self-care (01) | LOC: LABWHC1 13:09 | PROVIDERS: ATTEND Internal Medicine Endocrinology, Diabetes & Metabolism | DX: C73 Malignant neoplasm of thyroid gland (principal) | CPT/HCPCS: 36415; 84432; 84443; 86800 ==

== ENCOUNTER 2021-11-14 12:00 | Emergency (ER) | payer BC ==
[2021-11-14 12:54] VITALS: RESP 18
[2021-11-14 15:36] LABS: Basophils # (A) 0.1 k/uL (0-0.2); Basophils % (A) 1 %; Eosinophils # (A) 0.2 k/uL (0-0.7); Eosinophils % (A) 2 %; HCT 46.4 % (39.0-53.0); HGB 15.5 gm/dL (13.0-17.5); Lymphocytes # (A) 4.3 k/uL (1.0-4.8); Lymphocytes % (A) 32 %; MCH 29.3 pg (25.0-35.0); MCHC 33.4 g/dL (31.0-37.0); MCV 87.8 fL (80.0-100.0); Mean Platelet Volume 8.6; Monocytes # (A) 0.9 k/uL (0-1.0); Monocytes % (A) 7 %; Neutrophils # (A) 7.4 k/uL (1.3-7.7); Neutrophils % (A) 57 %; Platelet Count 315 k/uL (150-450); RBC 5.29 m/uL (4.30-5.90); RDW 13.8 % (11.5-15.5); WBC 13.1 k/uL (3.8-10.6)
[2021-11-14 15:47] LABS: African American GFR (CKD) >90 (>60 ml/min/1.73 sqM); Anion Gap 11 mmol/L; Blood Urea Nitrogen 19 mg/dL (9-20); Calcium 9.5 mg/dL (8.4-10.2); Carbon Dioxide 27 mmol/L (22-30); Chloride 102 mmol/L (98-107); Glucose 95 mg/dL (74-99); Non-African American GFR(CKD) >90 (>60 ml/min/1.73 sqM); Sodium 140 mmol/L (137-145)
[2021-11-14 15:49] LABS: Magnesium 2.1 mg/dL (1.6-2.3); Potassium 4.5 mmol/L (3.5-5.1)
--- NOTE | 2021-11-14 15:56 | ED ---
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 Over the last few weeks has been having difficulty controlling his blood pressure. Was recently started on any medication earlier this week. States that he occasionally will have blood pressures in the high 100s over low 200s systolic. States he occasionally will have a headache associated, since improved when he has control of his blood pressure. States he has been taking all of his blood pressure medications. Currently is asymptomatic, denying chest pain, shortness breath, headache, weakness, numbness. Denies any neurological complaints. 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 States these have not been bugging him lately. His endorses more stress lately secondary to his job, as he owns his own business. Denies any caffeine pill use or any to drink use. Does drink occasional coffee. Denies any illicit drug use. - Related Data Home Medications Medication Instructions Recorded Confirmed Cyclobenzaprine [Flexeril] 10 mg PO TID 05/10/17 11/14/21 Verapamil HCl [Verapamil ER] 480 mg PO DAILY 08/12/17 11/14/21 Losartan Potassium 100 mg PO DAILY 10/07/17 11/14/21 Ibuprofen [Motrin] 800 mg PO Q8H PRN 03/11/21 11/14/21 Atorvastatin [Lipitor] 80 mg PO DAILY 11/14/21 11/14/21 Metoprolol Succinate [Toprol XL] 50 mg PO DAILY 11/14/21 11/14/21 hydrALAZINE HCL [Apresoline] 25 mg PO BID 11/14/21 11/14/21 Previous Rx's Medication Instructions Recorded HYDROcodone/APAP 10-325MG [Davy 1 tab PO Q8H PRN #30 tab 10/07/17 10-325] Allergies Allergy/AdvReac Type Severity Reaction Status Date / Time No Known Allergies Allergy Verified 11/14/21 15:06 Review of Systems ROS Statement: Those systems with pertinent positive or pertinent negative responses have been documented in the HPI. Review of Systems: CONST: Denies fever EYES: Denies blurry vision ENT: Denies nasal congestion C/V: Denies Chest pain RESP: Denies shortness of breath GI: Denies abdominal pain : Denies dysuria SKIN: Denies rash. MSK: Denies joint pain. NEURO: Denies headache ROS Other: All systems not noted in ROS Statement are negative. 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 History of Any Multi-Drug Resistant Organisms: None Reported Past Surgical History: Back Surgery Additional Past Surgical History / Comment(s): back surgery 2008, thyroidectomy (2018). deviated septum surgery. Past Anesthesia/Blood Transfusion Reactions: No Reported Reaction Past Psychological History: No Psychological Hx Reported Smoking Status: Former smoker Past Alcohol Use History: Rare Past Drug Use History: None Reported - Past Family History Father Family Medical History: Cancer Additional Family Medical History / Comment(s): melanoma Mother Family Medical History: Diabetes Mellitus, Thyroid Disorder General Exam - General Exam Comments Initial Comments: General: Appears in no acute distress. HEAD: Normal with no signs of head trauma. EYES: PERRLA, EOMI, conjunctiva normal, no discharge. ENT: Hearing grossly intact, normal oropharynx. RESPIRATORY: Clear breath sounds bilaterally. No wheezes, rales, or rhonchi. C/V: Regular rate and rhythm. S1 and S2 auscultated, no edema, peripheral pulses 2+ and intact throughout ABD: Abd is soft, nontender, nondistended EXT: Normal range of motion, no obvious deformity SKIN: No rashes or lesions observed on exposed skin. NEURO: Alert and oriented x 4. Cranial nerves II-XII intact. No focal sensory or strength deficits. Limitations: no limitations Course Vital Signs 11/14/21 12:51 Temperature 98.6 F Pulse Rate 78 Respiratory 18 Rate Blood Pressure 155/100 O2 Sat by Pulse 97 Oximetry Medical Decision Making - Medical Decision Making Patient is a 51-year-old male who presents for difficult to control blood pressure over the last few weeks. Currently it is within his normal range of 155/100. He is asymptomatic at this time. We discussed at length potential causes for this and determined that we will obtain screening laboratory studies to check his kidney function. However patient does have follow-up with his PCP this week. As he is currently asymptomatic, he will likely be discharged home with close follow-up with his PCP. He was in agreement this plan. Laboratory studies were within normal limits except for mild leukocytosis of 13. 1 which is likely reactive. Vital signs remain within normal limits and stable at this time. EKG shows no signs of acute ischemia. I discussed the workup with the patient, and he feels comfortable following up with his PCP. I believe this is reasonable at this time. Remains asymptomatic. Patient will therefore be discharged home. I advised he continue taking all of his medications, and can hit to need to monitor his blood pressure and return if he has any concerns. He was in agreement with this plan. I instructed the patient to follow up with their PCP in the next 3 days. . I explained that the patient should return to the emergency department if they experience any worsening symptoms. Strict return precautions were discussed with the patient. The patient expressed understanding of these instructions. I answered all questions that the patient had. The patient was discharged home in good condition with their prescriptions and follow up information. - Lab Data Result diagrams: 11/14/21 15:12 11/14/21 15:12 Lab Results 11/14/21 11/14/21 Range/Units 15:12 15:12 WBC 13.1 H (3.8-10.6) k/uL RBC 5.29 (4.30-5.90) m/uL Hgb 15.5 (13.0-17.5) gm/dL Hct 46.4 (39.0-53.0) % MCV 87.8 (80.0-100.0) fL MCH 29.3 (25.0-35.0) pg MCHC 33.4 (31.0-37.0) g/dL RDW 13.8 (11.5-15.5) % Plt Count 315 (150-450) k/uL MPV 8.6 Neutrophils % 57 % Lymphocytes % 32 % Monocytes % 7 % Eosinophils % 2 % Basophils % 1 % Neutrophils # 7.4 (1.3-7.7) k/uL Lymphocytes # 4.3 (1.0-4.8) k/uL Monocytes # 0.9 (0-1.0) k/uL Eosinophils # 0.2 (0-0.7) k/uL Basophils # 0.1 (0-0.2) k/uL Sodium 140 (137-145) mmol/L Potassium 4.5 (3.5-5.1) mmol/L Chloride 102 (98-107) mmol/L Carbon Dioxide 27 (22-30) mmol/L Anion Gap 11 mmol/L BUN 19 (9-20) mg/dL Creatinine 0.98 (0.66-1.25) mg/dL Est GFR (CKD-EPI)AfAm >90 (>60 ml/min/1.73 sqM) Est GFR (CKD-EPI)NonAf >90 (>60 ml/min/1.73 sqM) Glucose 95 (74-99) mg/dL Calcium 9.5 (8.4-10.2) mg/dL Magnesium 2.1 (1.6-2.3) mg/dL - EKG Data -: EKG Interpreted by Me EKG Comments: 12-lead Electrocardiogram Interpretation Note EKG was reviewed and interpreted by myself. 12-lead ECG performed at 1443 is interpreted by me as revealing normal sinus rhythm at a rate of 71 beats per minute. [place] is normal. IN interval is 171 ms, QRS ration is 117 ms, QTc is 425 ms.. There were no ST or T wave abnormalities to suggest myocardial ischemia or injury. R wave progression across the precordium was satisfactory. By my interpretation this EKG is non-diagnostic for acute ischemia. Disposition Clinical Impression: Hypertension, Asymptomatic hypertension Disposition: HOME SELF-CARE Condition: Good Is patient prescribed a controlled substance at d/c from ED?: No Referrals: Vladimir Dias DO [Primary Care Provider] - 1-2 days
[2021-11-14 16:55] VITALS: BP 154/99; PULSE 84; TEMP 98.1
== END 2021-11-14 16:38 | disposition home or self-care (01) ==
LOC: EC 12:00
DX: I10 Essential (primary) hypertension (principal); E78.5 Hyperlipidemia, unspecified; Z87.891 Personal history of nicotine dependence; Z79.899 Other long term (current) drug therapy
CPT/HCPCS: 36415; 80048; 83735; 85025; 99283

== ENCOUNTER → 2021-11-30 | Outpatient (CLI) | payer BC ==
--- NOTE | 2021-12-01 07:01 | US ---
EXAMINATION TYPE: US carotid duplex BILAT DATE OF EXAM: 11/30/2021 COMPARISON: 10/06/2020 CLINICAL HISTORY: R51.9 HEADACHE, I10 HTN,E78.2 MIXED HYPERLIPIDEMIA. HTN- on meds EXAM MEASUREMENTS: RIGHT: Peak Systolic Velocity (PSV) cm/sec ----- Right CCA: 56.7 ----- Right ICA: 86.4 ----- Right ECA: 90.8 ICA/CCA ratio: 1.5 RIGHT: End Diastole cm/sec ----- Right CCA: 13.8 ----- Right ICA: 21.5 ----- Right ECA: 17.1 LEFT: Peak Systolic Velocity (PSV) cm/sec ----- Left CCA: 63.6 ----- Left ICA: 88.9 ----- Left ECA: 90.0 ICA/CCA ratio: 1.4 LEFT: End Diastole cm/sec ----- Left CCA: 20.0 ----- Left ICA: 30.7 ----- Left ECA: 16.4 VERTEBRALS (direction of flow): Right Vertebral: Antegrade Left Vertebral: Antegrade Rhythm: Normal No elevated velocities, plaque, significant stenosis or wall thickening. IMPRESSION: 1. No significant hemodynamic stenosis as visualized. Criteria for Assigning % of Stenosis / Diameter reduction (Estimation based on the indirect measurements of the internal carotid artery velocities (ICA PSV). 1. Normal (no stenosis)=ICA PSV < 125 cm/s: ratio < 2.0: ICA EDV<40 cm/s. 2. Less than 50% stenosis=ICA PSV < 125 cm/s: ratio < 2.0: ICA EDV<40 cm/s. 3. 50 to 69% stenosis=ICA PSV of 125 to 230 cm/s: ration 2.0 ? 4.0: ICA EDV 40-100 cm/s. 4. Greater than 70% stenosis to near occlusion= ICA PSV > 230 cm/s: ratio > 4.0: ICA EDV > 100 cm/s. 5. Near occlusion= ICA PSV velocities may be low or undetectable: variable ratio and ICA EDV. 6. Total occlusion=unable to detect flow.
== END | disposition home or self-care (01) ==
LOC: RADUSWWP 16:21
PROVIDERS: ATTEND Family Medicine
DX: R51.9 Headache, unspecified (principal); I10 Essential (primary) hypertension; E78.2 Mixed hyperlipidemia
CPT/HCPCS: 93880

== ENCOUNTER → 2022-05-04 | Outpatient (CLI) | payer BC | END | disposition home or self-care (01) | LOC: LABWHC1 11:24 | PROVIDERS: ATTEND Internal Medicine Endocrinology, Diabetes & Metabolism | DX: C73 Malignant neoplasm of thyroid gland (principal) | CPT/HCPCS: 36415; 84432; 84443; 86800 ==

== ENCOUNTER → 2022-05-10 | Outpatient (CLI) | payer BC ==
--- NOTE | 2022-05-11 08:58 | US ---
EXAMINATION TYPE: US thyroid st tissue head/neck DATE OF EXAM: 05/10/2022 COMPARISON: NONE CLINICAL HISTORY: C73 MALIGNANCY NEOPLASM OF THYROID GLAND. f/u for residual Soft tissue scan of bilateral thryoid bed shows no signs of residual tissue IMPRESSION: No residual thyroid tissue seen. No recurrent mass evident.
== END | disposition home or self-care (01) ==
LOC: RADUSWWP 16:29
PROVIDERS: ATTEND Internal Medicine Endocrinology, Diabetes & Metabolism
DX: C73 Malignant neoplasm of thyroid gland (principal)
CPT/HCPCS: 76536

== ENCOUNTER 2022-07-05 05:56 | Day surgery (SDC) | payer BC ==
[2022-07-05] MEDS ORDERED: ASPIRIN 325 MG TAB PO STA (05:57)
[2022-07-05] MEDS ORDERED: ALPRAZolam 0.5 MG TAB PO PRN (05:57)
[2022-07-05] MEDS ORDERED: NITROGLYCERIN SL TABS 0.4 MG TAB SUBLINGUAL PRN (05:57)
[2022-07-05] MEDS ORDERED: SODIUM CHLORIDE 0.9% 1,000 ML in EMPTY BAG 1 BAG IV SCH (05:57)
[2022-07-05] MEDS ORDERED: ALPRAZolam 0.25 MG TAB PO PRN (05:57)
[2022-07-05 06:31] LABS: Basophils # (A) 0.1 k/uL (0-0.2); Basophils % (A) 1 %; Eosinophils # (A) 0.9 k/uL (0-0.7); Eosinophils % (A) 8 %; HCT 42.9 % (39.0-53.0); HGB 15.4 gm/dL (13.0-17.5); Lymphocytes # (A) 3.7 k/uL (1.0-4.8); Lymphocytes % (A) 35 %; MCH 30.7 pg (25.0-35.0); MCHC 35.8 g/dL (31.0-37.0); MCV 85.8 fL (80.0-100.0); Mean Platelet Volume 9.1; Monocytes # (A) 0.6 k/uL (0-1.0); Monocytes % (A) 6 %; Neutrophils # (A) 5.1 k/uL (1.3-7.7); Neutrophils % (A) 48 %; Platelet Count 286 k/uL (150-450); RDW 13.2 % (11.5-15.5); WBC 10.6 k/uL (3.8-10.6)
[2022-07-05 06:45] LABS: African American GFR (CKD) >90 (>60 ml/min/1.73 sqM); Anion Gap 12 mmol/L; Blood Urea Nitrogen 15 mg/dL (9-20); Calcium 9.4 mg/dL (8.4-10.2); Carbon Dioxide 25 mmol/L (22-30); Chloride 103 mmol/L (98-107); Glucose 126 mg/dL (74-99); Non-African American GFR(CKD) >90 (>60 ml/min/1.73 sqM); Potassium 3.5 mmol/L (3.5-5.1); Sodium 140 mmol/L (137-145)
[2022-07-05 06:53] VITALS: TEMP 98.1
[2022-07-05] MEDS ORDERED: HEPARIN SODIUM 1,000 UN/ML (10ML VL) ONE (07:29)
[2022-07-05] MEDS ORDERED: MIDAZOLAM 2 MG/2 ML VIAL IV ONE ×2 (07:39→07:48)
[2022-07-05] MEDS ORDERED: LIDOCAINE 1% INJ 10MG/ML (30 ML VIAL-PF) SQ ONE (07:39)
[2022-07-05] MEDS ORDERED: fentaNYL (PF) 50 MCG/ML 2 ML AMP ONE (07:40)
[2022-07-05] MEDS ORDERED: VERAPAMIL SYRINGE (5 MG/10 ML) INTRAARTER ONE (07:42)
[2022-07-05] MEDS ORDERED: fentaNYL (PF) 50 MCG/ML 2 ML AMP IV ONE (07:45)
[2022-07-05] MEDS ORDERED: HEPARIN SODIUM 1,000 UN/ML (10ML VL) IV ONE (07:47)
[2022-07-05] MEDS ORDERED: IOPAMIDOL-370 100ML BTL INJ ONE (07:52)
[2022-07-05] MEDS ORDERED: RX INFO: IV CONTRAST WAS GIVEN 1 EACH MISC MISCELLANE PRN (07:55)
--- NOTE | 2022-07-05 07:59 | P.PCN ---
Date of Procedure: 07/05/22 Operative Findings: CARDIAC CATHETERIZATION PERFORMING PHYSICIAN: James Narvaez MD, RPVI PROCEDURE PERFORMED: 1. Selective right and left coronary angiogram 2. Left heart catheterization INDICATION: This is a 52-year-old gentleman who was symptomatic term of shortness of breath and he underwent myocardial perfusion imaging stress test came in to be abnormal was inferolateral ischemia. In the light of that heart catheterization was advised COMPLICATION: None APPROACH: Right radial artery LEVEL OF SEDATION: Moderate with a sedation length of 12 minutes PROCEDURE DESCRIPTION: After obtaining an informed consent, the patient was brought to cardiac rd lab technician. Local anesthesia was performed using lidocaine subcutaneously. The right radial artery was cannulated using Seldinger technique, the guidewire passed easily, following that we advanced a 5-Estonian sheath dilator assembly, the wire and dilator were removed and sheath was flushed. Following that, 2 mg of verapamil along with 5000 unit heparin were given. Selective right and left coronary angiogram using a 6-Estonian JR4 and JL 3.5 catheters. Following that we did left heart catheterization using 6-Estonian pigtail catheter. The procedure was completed there was no complication. SELECTIVE CORONARY ANGIOGRAM: The right coronary artery: Large caliber vessel and dominant vessel. Its angiographically normal. Left main: Angiographically normal. Bifurcates into LCx and LAD The left circumflex: Large caliber vessel nondominant vessel. Its angiographically normal. Gives rises into 3 obtuse marginal branches appeared to be angiographically normal The left anterior descending artery: Large-caliber vessel. Its angiographically normal. Gives rises into 3 diagonal branches appeared to be angiographically normal HEMODYNAMICS: The LVEDP was 12 mmHg was no significant gradient across aortic valve CONCLUSION: 1. Normal coronary angiogram 2. Normal left-sided filling pressure POSTPROCEDURE MANAGEMENT: Medical treatment and follow-up with the patient
[2022-07-05] MEDS ORDERED: SODIUM CHLORIDE 0.9% 1,000 ML IV SCH (08:00)
[2022-07-05 10:50] VITALS: BP 149/90; PULSE 52; RESP 16
== END 2022-07-05 12:12 | disposition home or self-care (01) ==
LOC: CATHCVL 05:56
PROVIDERS: ATTEND Internal Medicine Interventional Cardiology
DX: I99.8 Other disorder of circulatory system (principal); R94.39 Abnormal result of other cardiovascular function study; R06.02 Shortness of breath; I10 Essential (primary) hypertension; E78.5 Hyperlipidemia, unspecified; I34.0 Nonrheumatic mitral (valve) insufficiency; G47.30 Sleep apnea, unspecified
CPT/HCPCS: 93458; 80048; 85025; C1769; C1894; J2250; J2001; J3010; J1644; Q9967

== ENCOUNTER → 2022-12-29 | Outpatient (CLI) | payer BC ==
--- NOTE | 2022-12-29 18:28 | CT ---
EXAMINATION TYPE: CT soft tissue neck w con CT DLP: 537.0 mGycm, Automated exposure control for dose reduction was used. DATE OF EXAM: 12/29/2022 6:11 PM COMPARISON: 05/10/2017 CLINICAL INDICATION:Male, 52 years old with history of R22.1, lump anterior throat- marked with BB. H x of thyroid ca TECHNIQUE: Standard enhanced CT of the neck. Axial sections with coronal and sagittal reformats were obtained. Contrast used:100ML mL of Isovue 370 with IV Contrast, Oral contrast used: none. FINDINGS: Brain: Visualized portions are grossly unremarkable. Orbits: Unremarkable Sinuses: Grossly unremarkable. Spaces of the neck: Palpable marker correlates with soft tissue mass within the sternohyoid muscle me asuring 2.4 x 2.1 x 2.7 cm not present on prior in 2017. This does extend into the preepiglottic fat. Musculoskeletal: No acute osseous pathology. Lymph nodes: Multiple nonenlarged lymph nodes are seen along both anterior chains of the neck. Vascular structures: Visualized major arteries are patent without evidence of aneurysm. Thoracic Inlet/airway: Airway is patent. The lung apices are clear. Soft tissues/Thyroid: Thyroid gland is not definitively visualized may be surgically absent. Other: none. IMPRESSION 1. 4
== END | disposition home or self-care (01) ==
LOC: RADCTMAIN 17:29
PROVIDERS: ATTEND Family Medicine
DX: R22.1 Localized swelling, mass and lump, neck (principal)
CPT/HCPCS: 70491; Q9967

== ENCOUNTER 2023-03-15 12:28 | Day surgery (SDC) | payer BC ==
[2023-03-15] MEDS ORDERED: ALPRAZolam 0.5 MG TAB PO PRN (12:48)
[2023-03-15 13:31] VITALS: BP 111/56; PULSE 59; RESP 18; TEMP 97.7
--- NOTE | 2023-03-15 14:34 | US ---
ULTRASOUND GUIDED FNA OF A MIDLINE CYSTIC MASS: CLINICAL HISTORY: Midline neck mass possible thyroglossal duct cyst FINDINGS: Preliminary imaging demonstrated no sizable collection or mass remaining. Patient reported that [facility] had already aspirated the cystic lesion. Patient was stable throughout the procedure. Pathology is pending. All elements of maximal barrier technique were utilized. IMPRESSION: 1. No sizable lesion seen on ultrasound for percutaneous biopsy or aspiration..
== END 2023-03-15 14:20 | disposition home or self-care (01) ==
LOC: RADPROMAIN 12:28
PROVIDERS: ATTEND Otolaryngology
DX: R22.1 Localized swelling, mass and lump, neck (principal)
CPT/HCPCS: 76536

== ENCOUNTER → 2023-04-14 | Outpatient (CLI) | payer BC ==
--- NOTE | 2023-04-21 17:33 | MR ---
EXAMINATION TYPE: MR abdomen wo/w con DATE OF EXAM: 04/14/2023 3:38 PM INDICATION: Patient age:Male; 53 years old; Reason for study: R93.422 C73; . hx Lt renal mass COMPARISON: Outside imaging 02/15/2023 TECHNIQUE: Multiplanar multi-sequence imaging was performed without contrast. Post contrast imaging was performed. Post IV contrast subtraction images were also submitted for review. IV Contrast: 12 cc Gadavist FINDINGS: LOWER CHEST: No gross irregularity. ABDOMEN Liver: Unremarkable. Gallbladder and Bile ducts: Unremarkable. Pancreas: Scattered high T2 cyst cysts without evidence for postcontrast enhancement. The largest in the pancreatic tail measuring 14 mm. Spleen: Unremarkable. Adrenal glands: Unremarkable. Kidneys: The right kidney is without hydronephrosis or mass. Few scattered high T2 signal simple appearing cys t. Left kidney: There is a complex cystic mass within the posterior aspect of the left upper pole medial ly measuring 27 x 24 x 22 mm. There is heterogenous postcontrast enhancement. Mass is at least 50% ex ophytic. No evidence for lymphadenopathy or extension into the renal vein.. Stomach and Bowel: Unremarkable as visualized. Peritoneum: No evidence of pneumoperitoneum or free fluid. Vasculature: Unremarkable. No aortic aneurysm. Musculoskeletal: The osseous structures appear intact. Lymph Nodes: No gross evidence for lymphadenopathy. Abdominal wall: Fat-containing umbilical hernia. IMPRESSION: 1. Left renal 27 x 24 x 22 mm enhancing complex mass concerning for renal cell carcinoma until prove n otherwise. 2. Scattered cystic lesions throughout the pancreatic parenchyma which represent pseudocyst from evan or pancreatitis versus side branch intraductal papillary mucinous neoplasms. Consider follow-up in on e year for stability.
== END | disposition home or self-care (01) ==
LOC: RADMRIMAIN 13:29
PROVIDERS: ATTEND Family Medicine
DX: C73 Malignant neoplasm of thyroid gland (principal); N28.89 Other specified disorders of kidney and ureter; N28.1 Cyst of kidney, acquired; R93.422 Abnormal radiologic findings on diagnostic imaging of left kidney
CPT/HCPCS: 74183; A9585

== ENCOUNTER → 2023-06-23 | Outpatient (CLI) | payer BC ==
--- NOTE | 2023-06-23 15:22 | XR ---
EXAMINATION TYPE: XR chest 2V DATE OF EXAM: 06/23/2023 3:19 PM COMPARISON: None TECHNIQUE: XR chest 2V Frontal and lateral views of the chest. CLINICAL INDICATION:Male, 53 years old with history of PRE SURG; FINDINGS: Lungs/Pleura: There is no evidence of pleural effusion, focal consolidation, or pneumothorax. Pulmonary vascularity: Unremarkable. Heart/mediastinum: Cardiomediastinal silhouette is unremarkable. Musculoskeletal: No acute osseous pathology. IMPRESSION: No acute cardiopulmonary disease/process.
[2023-06-23 19:56] LABS: Appearance,Urine Clear (Clear); Bilirubin,Urine Negative (Negative); Blood,Urine Negative (Negative); Color,Urine Yellow (Yellow); Ketones,Urine Trace (Negative); Nitrite,Urine Negative (Negative); Specific Gravity,Urine 1.018 (1.001-1.030); Urobilinogen,Urine 0.2 E.U./DL
[2023-06-23 20:02] LABS: Bacteria,Urine None Seen (None Seen)
[2023-06-23 20:34] LABS: Blood Urea Nitrogen 15.8 mg/dL (9.0-27.0); Calcium 9.4 mg/dL (8.7-10.3); Carbon Dioxide 30.4 mmol/L (21.6-31.8); Chloride 99 mmol/L (96-109); Glucose 120 mg/dL (70-110); Potassium 3.6 mmol/L (3.5-5.5); Sodium 140 mmol/L (135-145)
[2023-06-24 01:01] LABS: Basophils # (A) 0.06 X 10*3/uL (0.00-0.10); Basophils % (A) 0.8 %; Eosinophils # (A) 0.29 X 10*3/uL (0.04-0.35); Eosinophils % (A) 3.7 %; HCT 42.5 % (39.6-50.0); HGB 13.8 d/dL (13.0-17.0); Lymphocytes # (A) 3.29 X 10*3/uL (0.90-5.00); Lymphocytes % (A) 41.4 %; MCH 29.2 pg (27.0-32.0); MCHC 32.5 d/dL (32.0-37.0); MCV 89.9 FL (80.0-97.0); Mean Platelet Volume 11.6 FL (9.5-12.2); Monocytes # (A) 0.58 X 10*3/uL (0.20-1.00); Monocytes % (A) 7.3 %; NRBC Per 100 WBC 0 X 10*3/uL (0.00-0.01); Neutrophils % (A) 46.5 %; Platelet Count 307 X 10*3/uL (140-440); RBC 4.73 X 10*6/uL (4.40-5.60); RDW 13.5 % (11.5-14.5); WBC 7.94 X 10*3/uL (4.50-10.00)
== END | disposition home or self-care (01) ==
LOC: LABPAT 14:14
PROVIDERS: ATTEND Urology
DX: Z01.818 Encounter for other preprocedural examination (principal); I10 Essential (primary) hypertension; I51.7 Cardiomegaly; D41.02 Neoplasm of uncertain behavior of left kidney; N28.89 Other specified disorders of kidney and ureter; R94.31 Abnormal electrocardiogram [ECG] [EKG]; R31.29 Other microscopic hematuria; R00.1 Bradycardia, unspecified
CPT/HCPCS: 36415; 71046; 80048; 81001; 85025; 86850; 86900; 86901; 87086; 93005

== ENCOUNTER 2023-06-30 09:56 | Observation (INO) | payer BC ==
[2023-06-27 10:14] VITALS: BMI 32.5
--- NOTE | 2023-06-28 13:33 | P.HPIHPCON ---
History of Present Illness H&P Date: 06/28/23 Chief Complaint: Left-sided renal mass This is a 53-year-old male with history of a 2.7 cm left-sided midpole renal mass. This was found incidentally. I reviewed the images with both patient and his . Option of observation, versus cryoablation versus excision was disc ussed with them in detail. They agreed to proceed with a robotic left-sided partial nephrectomy, aware of the risk which includes but not limited to bleeding, infection, injury to nearby organ, potential of converting into a radical nephrectomy. Discussed if a radical nephrectomies is performed then he is at higher risk of needing hemodialysis in the short and the long-term. Discussed also potential of cancer recurrence and need for postoperative surveillance. Risk of anesthesia was also discussed. He understood all the risk and agreed to proceed Consent for Procedure: I have explained the operation/procedure to the patient, including the risks, benefits, side effects, alternative therapies (including not receiving the proposed treatment or service), the likelihood of the patient achieving his/her goals, and potential recuperation problems for the procedure/sedation/analgesia, as well as any blood products, if indicated. I also explained to the patient the risks, benefits and side effects of the alternatives, as well as the risks related to not receiving the proposed procedure, care, treatment, or services. Past Medical History Past Medical History: Cancer, Hearing Disorder / Deafness, Hyperlipidemia, Hypertension, Musculoskeletal Disorder, Sleep Apnea/CPAP/BIPAP, Thyroid Disorder Additional Past Medical History / Comment(s): Chronic back pain with right leg sciatica nerve damage, herniated cervical disc with tingling in bilateral arms, Degenerative Disc Disease. Hx thyroid cancer with total thyroidectomy (2018). 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 Hx Sleep Apnea, resolved with surgery. Seasonal allergies. Some hearing loss left ear. History of Any Multi-Drug Resistant Organisms: None Reported Past Surgical History: Back Surgery, Heart Catheterization Additional Past Surgical History / Comment(s): Back surgery 2007, thyroidectomy 2018, deviated septum surgery, colonoscopy. Past Anesthesia/Blood Transfusion Reactions: No Reported Reaction Additional Past Anesthesia/Blood Transfusion Reaction / Comment(s): No blood transfusions. Past Psychological History: No Psychological Hx Reported Smoking Status: Former smoker Past Alcohol Use History: Rare Additional Past Alcohol Use History / Comment(s): Smoked off and on for 25 years, 1 pdd, quit in 2012. Past Drug Use History: Marijuana Additional Drug Use History / Comment(s): Occasional Marijuana CBD, aware not to use 24 hrs before procedure. - Past Family History Father Family Medical History: Cancer Additional Family Medical History / Comment(s): Melanoma. Mother Family Medical History: Diabetes Mellitus, Thyroid Disorder Medications and Allergies Home Medications Medication Instructions Recorded Confirmed Type Cyclobenzaprine [Flexeril] 10 mg PO TID PRN 05/10/17 06/27/23 History HYDROcodone/APAP 10-325MG [[place] 1 tab PO Q8H PRN #30 tab 10/07/17 06/27/23 Rx 10-325] Losartan Potassium 100 mg PO W/SUPPER 10/07/17 06/27/23 History Atorvastatin [Lipitor] 80 mg PO W/SUPPER 11/14/21 06/27/23 History Metoprolol Succinate [Toprol XL] 50 mg PO W/SUPPER 11/14/21 06/27/23 History Levothyroxine Sodium [Synthroid] 300 mcg PO 0300 07/01/22 06/27/23 History Chlorthalidone [Hygroton] 25 mg PO DAILY 10/22/22 06/27/23 History Verapamil HCl [Verapamil ER] 480 mg PO W/SUPPER 10/22/22 06/27/23 History Allergies Allergy/AdvReac Type Severity Reaction Status Date / Time No Known Allergies Allergy Verified 06/27/23 09:49 Surgical - Exam - General no distress, no pain - Eyes normal ocular movement, no pale - ENT normal nares, normal mucosa - Respiratory normal expansion, normal respiratory effort - Abdomen Abdomen: soft, non tender - Psychiatric oriented to time, oriented to person, oriented to place Assessment and Plan Assessment: 53-year-old history of left-sided renal mass -Or for left-sided robotic partial nephrectomy, possible radical nephrectomy
[~2023-06-30 09:56] MED LIST changes: -DEXAMETHASONE SOD PHOSPHATE 4 MG/ML 1 ML VIAL IV PRN; -FAMOTIDINE 20 MG/2 ML VIAL IV PRN; +HYDROmorphone 0.5 MG/0.5 ML SYRINGE IVP PRN; -LACTATED RINGERS 1,000 ML IV SCH; +LIDOCAINE 1% (10MG/ML) FOR IV START INTRADERMA PRN; +MIDAZOLAM 2 MG/2 ML VIAL IV PRN; -ONDANSETRON 4 MG/2 ML VIAL IVP PRN
[2023-06-30] MEDS: LACTATED RINGERS 1,000 ML IV SCH (11:06)
[2023-06-30] MEDS ORDERED: LACTATED RINGERS 1,000 ML IV ONE ×2 (11:06→14:25)
[2023-06-30] MEDS ORDERED: FAMOTIDINE 20 MG/2 ML VIAL IVP ONE (11:24)
[2023-06-30] MEDS ORDERED: CYCLOBENZAPRINE 10 MG TAB PO PRN (12:41)
[2023-06-30] MEDS ORDERED: MANNITOL 25% 12.5 GM/50 ML VIAL ONE (13:15)
[2023-06-30] MEDS ORDERED: hydrALAZINE HCL 20 MG/ML 1 ML VIAL ONE (13:15)
[2023-06-30] MEDS ORDERED: PHENYLEPHRINE-0.9% NACL SYG 1,000 MCG/10 ML SYRINGE ONE (13:15)
[2023-06-30] MEDS ORDERED: SUCCINYLCHOLINE CHLORIDE 200 MG/10 ML VIAL IV ONE (13:15)
[2023-06-30] MEDS ORDERED: HYDROmorphone (PF) 1 MG/ML ONE (13:15)
[2023-06-30] MEDS ORDERED: LIDOCAINE 1% INJ 10MG/ML (20 ML MDV) ONE (13:15)
[2023-06-30] MEDS ORDERED: PROPOFOL 10 MG/ML 20 ML VIAL IV ONE (13:15)
[2023-06-30] MEDS ORDERED: fentaNYL (PF) 50 MCG/ML 2 ML AMP ONE (13:15)
[2023-06-30] MEDS ORDERED: NEOSTIGMINE 1 MG/ML 10 ML VIAL ONE (13:15)
[2023-06-30] MEDS ORDERED: GLYCOPYRROLATE 0.2 MG/ML 2 ML VIAL ONE (13:15)
[2023-06-30] MEDS ORDERED: ROCURONIUM 10 MG/ML (5 ML VIAL) IV ONE (13:15)
[2023-06-30] MEDS ORDERED: MIDAZOLAM 2 MG/2 ML VIAL ONE (13:15)
[2023-06-30] MEDS ORDERED: BUPIVACAINE (PF) 0.25% 30 ML VIAL SQ ONE (14:23)
--- NOTE | 2023-06-30 17:00 | P.OP ---
Date of Procedure: 06/30/23 Preoperative Diagnosis: Left renal mass Postoperative Diagnosis: same Procedure(s) Performed: Left robotic partial nephrectomy Implants: none Anesthesia: DAIANA Surgeon: Yariel Knowles Estimated Blood Loss (ml): 100 Pathology: other (Left renal mass) Condition: stable Disposition: PACU Indications for Procedure: This is a 53-year-old male with history of a 2.7 cm left-sided midpole renal mass. This was found incidentally. I reviewed the images with both patient and his . Option of observation, versus cryoablation versus excision was discussed with them in detail. They agreed to proceed with a robotic left-sided partial nephrectomy, aware of the risk which includes but not limited to bleeding, infection, injury to nearby organ, potential of converting into a radical nephrectomy. Discussed if a radical nephrectomies is performed then he is at higher risk of needing hemodialysis in the short and the long-term. Discussed also potential of cancer recurrence and need for postoperative surveillance. Risk of anesthesia was also discussed. He understood all the risk and agreed to proceed Description of Procedure: The patient was taken to the operating room . General anesthesia was induced. She was prepped and draped in sterile fashion, she was placed in modified flank position . All pressure points were padded. The abdominal insufflation was achieved with the Veress needle. A 8 mm camera port was placed. Robotic trocars and assistant softball coach ports were placed under direct vision. The robot was docked into place. The colon was mobilized medially by incising along the white line of Toldt. Next the spleen and the pancrease were mobilized. Once the bowel, spleen and pancreas were mobilized. At this time the gonadal vessel was visualized. Once the gonadal vessel and ureter was visualized , next after the psoas plane was developed the ureter and gonadal vessel was retracted anteriorly off the psoas muscle. Dissection proceeded cranially towards the renal hilum. The upper pole attachments were dissected. Care was taken to safely mobilize the kidney free of all visceral structures.The renal vessels were dissected. The renal artery and the vein was dissected in preparation for clamping. Next attention was carried to the tumor, the area around the tumor was defatted, insuring adequate defatting to identify a normal parenchyma. Manitol was administered. The renal artery was clamped using 2 bulldogs. After clamping the renal artery the tumor was excised sharply with adequate margin, and cautery was used in areas of bleeding. Next the defect was closed in 2 layers using 30V lock for the inner layer, 20V lock in interrupted fashion for the outer layer. Sliding clip technique was used. Next the clamps were removed, total clamp time 23 minutes, there was no evidence of bleeding from the defect. Hemostatic agents were applied The kidney tumor was placed in an Endo Catch bag. A CONCETTA drain was placed through the lower robotic trocor incision. The robot was then de-docked and the specimen was then removed by extending the assistant softball coach port. Fascia was closed with one layer using #1 Vicryl Skin was closed with subcuticular sutures and dermabond. The patient was awoken from general anesthesia in stable condition. all counts were correct Please refer to the final pathology report for final diagnosis
[2023-06-30] MEDS ORDERED: IV FLUID CONTINUATION 500 ML IV ONE (17:19)
[2023-06-30] MEDS ORDERED: LOSARTAN 50 MG TAB PO SCH (17:30)
[2023-06-30] MEDS ORDERED: VERAPAMIL SR 240 MG TABLET.ER PO SCH (17:30)
[2023-06-30] MEDS ORDERED: METOPROLOL SUCCINATE (ER) 50 MG TAB.ER.24H PO SCH (17:30)
[2023-06-30] MEDS ORDERED: HYDROmorphone 0.5 MG/0.5 ML SYRINGE IVP ONE ×2 (17:39→18:14)
[2023-06-30] MEDS: HYDROmorphone 1 MG/ML 1 ML SYRINGE IVP PRN (21:36)
[2023-06-30] MEDS: D5-0.45% NACL WITH KCL 20MEQ/L 1,000 ML IV SCH (22:12)
[2023-06-30] MEDS: KETOROLAC 15 MG/ML 1 ML VIAL IVP SCH (22:13)
[2023-06-30] MEDS: HEPARIN SODIUM,PORCINE 5,000 UNIT/ML 1 ML VIAL SQ SCH (22:15)
[2023-07-01] MEDS: KETOROLAC 15 MG/ML 1 ML VIAL IVP SCH ×3 (00:22→12:53)
[2023-07-01] MEDS: HEPARIN SODIUM,PORCINE 5,000 UNIT/ML 1 ML VIAL SQ SCH ×2 (00:22→08:35)
[2023-07-01] MEDS: D5-0.45% NACL WITH KCL 20MEQ/L 1,000 ML IV SCH ×2 (01:49→10:50)
[2023-07-01] MEDS ORDERED: LEVOTHYROXINE 100 MCG TAB PO SCH (03:00)
[2023-07-01] MEDS: HYDROmorphone 1 MG/ML 1 ML SYRINGE IVP PRN ×2 (03:27→08:35)
[2023-07-01 07:56] VITALS: RESP 18
[2023-07-01] MEDS ORDERED: ONDANSETRON 4 MG/2 ML VIAL IVP PRN (08:34)
[2023-07-01] MEDS ORDERED: HYDROcodone/APAP 10-325MG 1 EACH TAB PO PRN (08:35)
[2023-07-01] MEDS: LACTATED RINGERS 1,000 ML IV SCH (10:51)
[2023-07-01 11:12] LABS: Basophils # (A) 0.02 X 10*3/uL (0.00-0.10); Basophils % (A) 0.1 %; Eosinophils # (A) 0.02 X 10*3/uL (0.04-0.35); Eosinophils % (A) 0.1 %; HCT 39.8 % (39.6-50.0); HGB 13.4 d/dL (13.0-17.0); Lymphocytes # (A) 1.63 X 10*3/uL (0.90-5.00); Lymphocytes % (A) 9.9 %; MCHC 33.7 d/dL (32.0-37.0); MCV 86.1 FL (80.0-97.0); Mean Platelet Volume 10.7 FL (9.5-12.2); Monocytes % (A) 8.5 %; NRBC Per 100 WBC 0 X 10*3/uL (0.00-0.01); Neutrophils # (A) 13.37 X 10*3/uL (1.80-7.70); Neutrophils % (A) 80.9 %; Platelet Count 316 X 10*3/uL (140-440); RBC 4.62 X 10*6/uL (4.40-5.60); RDW 13.3 % (11.5-14.5); WBC 16.52 X 10*3/uL (4.50-10.00)
[2023-07-01 11:23] LABS: Blood Urea Nitrogen 18.1 mg/dL (9.0-27.0); Calcium 9.2 mg/dL (8.7-10.3); Carbon Dioxide 25.7 mmol/L (21.6-31.8); Chloride 100 mmol/L (96-109); Glucose 128 mg/dL (70-110); Potassium 3.5 mmol/L (3.5-5.5); Sodium 139 mmol/L (135-145)
--- NOTE | 2023-07-01 13:32 | P.DS ---
Providers Date of admission: 07/01/23 09:51 Attending physician: Yariel Knowles MD Primary care physician: [facility] Course: this is a 53-year-old male with history of left-sided renal mass underwent a robotic left-sided partial nephrectomy on June 30. Patient was admitted to the hospital postoperatively. His Emerson catheter and CONCETTA drain was removed on postop day #1. He was discharged home on postop day #1. At time of discharge she was tolerating a diet, ambulating, pain was controlled Plan - Discharge Summary Discharge Rx Participant: Yes New Discharge Prescriptions: New Ketorolac [Toradol] 10 mg PO Q6HR PRN #15 tab PRN Reason: Pain HYDROcodone/APAP 10-325MG [[place] 10-325] 1 tab PO Q4HR PRN 3 Days #18 tab PRN Reason: Pain No Action Cyclobenzaprine [Flexeril] 10 mg PO TID PRN PRN Reason: Muscle Pain Losartan Potassium 100 mg PO W/SUPPER HYDROcodone/APAP 10-325MG [[place] 10-325] 1 tab PO Q8H PRN #30 tab PRN Reason: Pain Metoprolol Succinate [Toprol XL] 50 mg PO W/SUPPER Atorvastatin [Lipitor] 80 mg PO W/SUPPER Levothyroxine Sodium [Synthroid] 300 mcg PO 0300 Chlorthalidone [Hygroton] 25 mg PO DAILY Verapamil HCl [Verapamil ER] 480 mg PO W/SUPPER Discharge Medication List Cyclobenzaprine [Flexeril] 10 mg PO TID PRN 05/10/17 [History] HYDROcodone/APAP 10-325MG [[place] 10-325] 1 tab PO Q8H PRN #30 tab 10/07/17 [Rx] Losartan Potassium 100 mg PO W/SUPPER 10/07/17 [History] Atorvastatin [Lipitor] 80 mg PO W/SUPPER 11/14/21 [History] Metoprolol Succinate [Toprol XL] 50 mg PO W/SUPPER 11/14/21 [History] Levothyroxine Sodium [Synthroid] 300 mcg PO 0300 07/01/22 [History] Chlorthalidone [Hygroton] 25 mg PO DAILY 10/22/22 [History] Verapamil HCl [Verapamil ER] 480 mg PO W/SUPPER 10/22/22 [History] HYDROcodone/APAP 10-325MG [[place] 10-325] 1 tab PO Q4HR PRN 3 Days #18 tab 07/01/23 [Rx] Ketorolac [Toradol] 10 mg PO Q6HR PRN #15 tab 07/01/23 [Rx] Activity/Diet/Wound Care/Special Instructions: increase her fluid intake No heavy lifting or straining for 4 weeks You may shower, no baths
[2023-07-01 16:22] VITALS: BP 155/92; PULSE 78; TEMP 98.3
== END 2023-07-01 16:14 | disposition home or self-care (01) ==
LOC: OR 09:56 → 4SSUR 17:40 → OR 07-01 09:45 → 4SSUR 07-01 09:51
PROVIDERS: ADMIT Urology; ATTEND Urology
DX: C64.2 Malignant neoplasm of left kidney, except renal pelvis (principal); E78.5 Hyperlipidemia, unspecified; I10 Essential (primary) hypertension; G47.30 Sleep apnea, unspecified; G89.29 Other chronic pain; M54.9 Dorsalgia, unspecified; E89.0 Postprocedural hypothyroidism; Z85.850 Personal history of malignant neoplasm of thyroid; Z87.891 Personal history of nicotine dependence; Z79.890 Hormone replacement therapy; Z79.899 Other long term (current) drug therapy
CPT/HCPCS: 50543; S2900; 80048; 85025; 88307; 96372; 96374; 96375; 96376

== ENCOUNTER → 2023-08-01 | Outpatient (CLI) | payer BC ==
--- NOTE | 2023-08-02 12:15 | CT ---
EXAMINATION TYPE: CT soft tissue neck wo/w con DATE OF EXAM: 08/01/2023 COMPARISON: 12/29/2022 HISTORY: Hx of thyroid CA. Cyst in throat. CT DLP: 1250.0 mGycm Automated exposure control for dose reduction was used. Contrast: None Technique: Axial images 3 mm thick sections. Reconstructed images in the coronal and sagittal plane FINDINGS: Portions of the paranasal sinuses within the [id number] are essentially clear. Mastoid air cells a re clear Torus tubarius and fossa of Rosenmuller normal. School Custodian spaces are normal. Parapharyngeal spaces a re normal. Parotid glands are symmetrical. Submandibular glands appear symmetric. Hypopharynx is normal. Vocal cord level is closed during this examination. Subglottic airway is shawn l. Thyroid is absent which can be compatible with the patient's surgical history. No recurrent masses are identified. Lung apices within the field of view are clear. IMPRESSION: 1. NO SUSPICIOUS CHANGES TO SUGGEST RECURRENT OR METASTATIC THYROID CANCER. THYROID BED APPEARS CLEAR . 2. PREVIOUS HYPODENSE AREA AT THE LEVEL OF THE HYOID BONE IS ABSENT ON THE CURRENT EXAM.
== END | disposition home or self-care (01) ==
LOC: RADCTMAIN 14:09
PROVIDERS: ATTEND Otolaryngology
DX: R22.1 Localized swelling, mass and lump, neck (principal)
CPT/HCPCS: 70492; Q9967

== ENCOUNTER → 2024-01-04 | Outpatient (CLI) | payer BC | END | disposition home or self-care (01) | LOC: LABWHC1 11:58 | PROVIDERS: ATTEND Internal Medicine Endocrinology, Diabetes & Metabolism | DX: E03.8 Other specified hypothyroidism (principal) | CPT/HCPCS: 36415; 84443; 86800 ==

== ENCOUNTER → 2024-01-04 | Outpatient (CLI) | payer BC ==
--- NOTE | 2024-01-04 14:21 | CT ---
EXAMINATION TYPE: CT abdomen wo/w con CT DLP: 2002 mGycm, Automated exposure control for dose reduction was used. DATE OF EXAM: 01/04/2024 2:13 PM COMPARISON: 04/14/2023 02/15/2023 CLINICAL INDICATION:Male, 53 years old with history of C64.2 MALIGNANT NEOPLASM OF LEFT KIDNEY, EXCEP T RE; Malignant neoplasm LT kidney TECHNIQUE: Axial CT abdomen wo/w con;Sagittal and coronal reformats were created on a separate works tation. Contrast used:80 mL of Isovue 300 with IV Contrast, (none if empty) Oral contrast used: with Oral Contrast (none if empty) FINDINGS: LOWER CHEST: Unremarkable ABDOMEN LIVER: Diffusely hypoattenuating parenchyma. GALLBLADDER AND BILE DUCTS: Unremarkable. PANCREAS: Multiple pancreatic cysts which are better characterized on MRI. SPLEEN: Nonenlarged. ADRENAL GLANDS: Unremarkable. KIDNEYS AND URETERS: Post surgical changes left kidney without enhancing mass. No evidence for hydron ephrosis or renal calculus. PELVIS BLADDER: Unremarkable REPRODUCTIVE: Unremarkable. ABDOMEN & PELVIS STOMACH AND BOWEL: No evidence of bowel obstruction. PERITONEUM/RETROPERITONEUM: No evidence of pneumoperitoneum or free fluid. VASCULATURE: No evidence of aortic aneurysm. MUSCULOSKELETAL: No acute osseous abnormalities LYMPH NODES: No gross evidence for lymphadenopathy. SOFT TISSUE/ABDOMINAL WALL: Fat-containing buccal hernia. Superior ventral wall fat-containing hernia . IMPRESSION: 1. Left Partial nephrectomy changes without evidence for mass/recurrence. No evidence for lymphadeno teja. 2. Ventral wall and umbilical fat-containing hernias. 3. Pancreatic cysts are better appreciated on prior MRI. 4. Hepatic steatosis.
== END | disposition home or self-care (01) ==
LOC: RADCTMAIN 12:23
PROVIDERS: ATTEND Urology
DX: K86.2 Cyst of pancreas (principal); C64.2 Malignant neoplasm of left kidney, except renal pelvis; K76.0 Fatty (change of) liver, not elsewhere classified; K42.0 Umbilical hernia with obstruction, without gangrene; K43.6 Other and unspecified ventral hernia with obstruction, without gangrene; Z90.5 Acquired absence of kidney
CPT/HCPCS: 74170; 36415; Q9967

== ENCOUNTER → 2024-01-05 | Outpatient (CLI) | payer BC ==
--- NOTE | 2024-01-06 10:03 | US ---
EXAMINATION TYPE: US thyroid st tissue head/neck DATE OF EXAM: 01/05/2024 COMPARISON: 05/10/2022 CLINICAL INDICATION: Male, 53 years old with history of E03.8 OTHER SPECIFIED HYPOTHYROIDISM; Thyroid CA removed x 4 years ago. GLAND SIZE: Right Lobe: Surgically absent Left Lobe: Surgically absent Isthmus Thickness: Surgically absent NODULES RIGHT: # of nodules measured on right: 0 LEFT: # of nodules measured on left: 0 ISTHMUS: # of nodules measured in the isthmus: 0 Bilateral neck scanned, no evidence of lymphadenopathy. IMPRESSION: Status post thyroidectomy with no significant abnormality seen.
== END | disposition home or self-care (01) ==
LOC: RADUSWWP 16:24
PROVIDERS: ATTEND Internal Medicine Endocrinology, Diabetes & Metabolism
DX: E03.8 Other specified hypothyroidism (principal); Z85.850 Personal history of malignant neoplasm of thyroid; Z90.89 Acquired absence of other organs
CPT/HCPCS: 76536

== ENCOUNTER → 2024-02-10 | Outpatient (CLI) | payer BC ==
[2024-02-11 20:56] LABS: ACTH 9.87 pg/mL (0.00-45.99)
== END | disposition home or self-care (01) ==
LOC: LABWHC1 14:27
PROVIDERS: ATTEND Internal Medicine Endocrinology, Diabetes & Metabolism
DX: C73 Malignant neoplasm of thyroid gland (principal); R53.83 Other fatigue
CPT/HCPCS: 36415; 82024; 82533; 84403; 84432; 84443; 86800

== ENCOUNTER → 2024-08-27 | Outpatient (CLI) | payer BC | END | disposition home or self-care (01) | LOC: LABWHC1 14:45 | PROVIDERS: ATTEND Internal Medicine Endocrinology, Diabetes & Metabolism | DX: C73 Malignant neoplasm of thyroid gland (principal); R53.83 Other fatigue | CPT/HCPCS: 36415; 84403; 84432; 84443; 86800 ==

== ENCOUNTER → 2025-02-25 | Outpatient (CLI) | payer BC ==
--- NOTE | 2025-02-25 15:22 | CT ---
EXAMINATION TYPE: CT abdomen wo/w con CT DLP: 2497.8 mGycm, Automated exposure control for dose reduction was used. DATE OF EXAM: 02/25/2025 3:02 PM COMPARISON: CT abdomen 01/04/2024, MR abdomen 04/14/2023 CLINICAL INDICATION:Male, 55 years old with history of R10.10 UPPER ABDOM PAIN,UNSPEC R14.0 ABDOM DIS TENS; UPPER ABDOMEN PAIN TECHNIQUE: Standard CT of the abdomen after the uneventful administration of 100 cc of Isovue-300 i ntravenously. Oral contrast was administered.. Coronal and sagittal reformats were performed. FINDINGS: LOWER CHEST: Unremarkable ABDOMEN LIVER: Unremarkable GALLBLADDER AND BILE DUCTS: Unremarkable. PANCREAS: Multiple small pancreatic cysts which are better characterized on MRI. No pancreatic duct d ilatation. SPLEEN: Unremarkable. ADRENAL GLANDS: Unremarkable. KIDNEYS AND URETERS: No evidence of hydronephrosis or renal calculus. The kidneys enhance symmetrical ly. Postsurgical changes of the left kidney without evidence for recurrent lesion. Subcentimeter righ t renal posterior mid kidney hyperdense cyst. Consistent with a proteinaceous/hemorrhagic cyst. No fo lilly recommend. Contrast is demonstrated within both collecting systems on the delayed phase. STOMACH AND BOWEL: Stomach appears unremarkable. Small periampullary duodenal diverticulum. Enteric c ontrast reaches the small bowel. No focal wall thickening or surrounding inflammatory changes. The ap pendix is within normal limits. No evidence of bowel obstruction. PERITONEUM: No evidence of pneumoperitoneum or free fluid. VASCULATURE: Mild atherosclerotic calcifications are present throughout the abdominal aorta and its b ranches. No evidence of aortic aneurysm. MUSCULOSKELETAL: No acute osseous abnormalities. No aggressive osseous lesion. Degenerative changes o f bilateral SI joints. LYMPH NODES: No evidence for lymphadenopathy. SOFT TISSUE/ABDOMINAL WALL: Tiny midline epigastric ventral fat-containing hernia. Small fat-containi ng abdominal hernia. IMPRESSION: Partial left nephrectomy changes redemonstrated without evidence for recurrent mass or abdominal meta stasis. No acute abdominal process. [facility], , 02/25/2025 3:20 PM
== END | disposition home or self-care (01) ==
LOC: RADCTMAIN 13:24
PROVIDERS: ATTEND Family Medicine
DX: R10.10 Upper abdominal pain, unspecified (principal); R14.0 Abdominal distension (gaseous); Z90.5 Acquired absence of kidney
CPT/HCPCS: 74170; Q9967